=== PATIENT | female | born 1990 | race Caucasian/White ===

== ENCOUNTER → 2019-04-08 12:50 | Outpatient (CLI) | payer SELFPAY ==
--- NOTE | 2019-04-08 09:20 | ASPS_PTH ---
PATIENT: ANITA MCKEON LOC: [facility] #:[id number] AGE/SX: 34/F ROOM: RE04/08/[address]: Dr. José Manuel Roberts MD : 1990 BED: DIS: SPEC #: [id number] RECD: 04/08/19 12:50 STATUS: JOAN ROBERTO #: [id number] BRE: 04/08/19 09:[address]: José Manuel Roberts DEPT: CYTOLOGY RECD BY: Varun Keita Tissues: Thyroid gland, NOS Procedures: Special Stain Group II Cytology Other HEADER OPERATION: FNA isthmus PRE-OP DIAGNOSIS: Isthmus nodule TISSUE SUBMITTED: Isthmus x4 slides DIAGNOSIS CYTOLOGY Isthmic nodule, FNA (smears): Consistent with benign follicular nodule with cystic changes. Adequate for evaluation. SJ:lainey 04/09/19 COMMENT Correlation with clinical, radiologic findings and appropriate follow up are necessary. CYTOLOGY STUDY Slides are reviewed. CYTOLOGY GROSS Received are four smears labeled with the patient's name and designated per the requisition as isthmus. Submitted for staining. / lainey 04/08/19 TC:5 CPT: 67184
[2019-04-08 09:30] VITALS: BMI 30.4
== END ==
PROVIDERS: Referring Provider Surgery; Visit Provider Surgery
DX: E04.1 Nontoxic single thyroid nodule (principal)
CPT/HCPCS: 88161; 88313

== ENCOUNTER → 2025-02-07 | Outpatient (CLI) | payer SELFPAY, OTHER ==
--- NOTE | 2025-02-07 07:23 | US_ITS ---
PROCEDURE: CHEST 02/07/2025 REASON FOR EXAM: LIPOMA, CONCERN FOR SPINE INVOLVEMENT TECHNIQUE: Procedure Code: USCHEST Modality: US Procedure: CHEST The palpable abnormality overlying the right upper thorax posteriorly was examined with ultrasound. . COMPARISON: None FINDINGS: The palpable abnormality corresponds to a 6 cm by 4.9 cm by 1.2 cm well- circumscribed isoechoic mass most likely representing a lipoma. US/Chest IMPRESSION: The palpable abnormality most likely corresponds to a 6 cm x 4.9 cm 1.2 cm lipo ma. Reading Location: [place] [id number]
--- OUTSIDE RECORDS SUMMARY | 2025-02-07 07:26 | XMS RPT_ITS | CCD ---
Author Organization [facility] Care Team Providers Care Fur Blowing Machine Attendant Name Role Phone JESSY ELLIOTT Attending Unavailable JESSY ELLIOTT Primary Care Unavailable JESSY ELLIOTT Admitting Unavailable ELSI DELCID Attending Unavailable JESSY ELLIOTT Primary Care Unavailable EMETERIO PEREZ Admitting Unavailable EMETERIO PEREZ Attending Unavailable EMETERIO PEREZ Primary Care Unavailable Gavin BUNDY, Sheila Felix Unavailable [facility] Unavailable Omar COW PUNCHER, Elvira Unavailable Emeterio Perez MD Unavailable Artur COW PUNCHER, Toya Unavailable Unavailable Zaugg COW PUNCHER, Elsi Unavailable Unavailable (Murphy), [facility] Unavailable José Manuel Villalobos Attending Unavailable Salinas Mcintosh Referring Unavailable Salinas Mcintosh Attending Unavailable Allergies Allergy Classification Reported Allergen(s) Allergy Type Date of Onset Reaction(s) Facility (1 source) CONTRAST MEDIA, IODINE RELATED Drug allergy (disorder) [facility] Repository (3 sources) Iodine Drug Allergy [facility], [facility].; [facility], [facility]. (1 source) Iodinated Contrast Media Drug allergy (disorder) 01-21-2025 [facility] Repository Medications Completed/Discontinued Medications Medication Drug Class(es) Dates Sig (Normalized) Sig (Original) amoxicillin 875 mg oral tablet (3 sources) Penicillin-class Antibacterial Start: 09-03-2022 End: 09-24-2022 take 1 tablet by mouth twice daily Amoxicillin 875 MG Oral Tablet ; 1 (one) Tablet bid for 21 days Quantity: 42 {Tablet} Refills: 0 Ordered: 03-Sep-2022 MD Emeterio Perez Start: 03-Sep-2022 End: 24-Sep-2022 Status: Inactive Problems Active Problems Problem Classification Problem Date Documented Da te Episodic/Chronic E Codes: Natural/environment (6 sources) Infected insect bite; Translations: [Bitten or stung by nonvenomous insect and other nonvenomous arthropods, initial encounter] 09-20-2024 Episodic Other and unspecified benign neoplasm (5 sources) Lipoma (clinical); Translations: [Benign lipomatous neoplasm, unspecified] 09-21-2024 Episodic Other and unspecified benign neoplasm (2 sources) Benign lipomatous neoplasm of skin and subcutaneous tissue of trunk; Translations: [Benign lipomatous neoplasm of skin and subcutaneous tissue of trunk] Onset: 01-21-2025 Episodic Other skin disorders (9 sources) Mass of neck; Translations: [Localized swelling, mass and lump, neck] 03-08-2019 Episodic Thyroid disorders (3 sources) Mass of thyroid gland; Translations: [Other specified disorders of thyroid] 03-08-2019 Episodic Unclassified (3 sources) deliveries 12-30-2018 Comment on above: 1. Unclassified (3 sources) Number of Children 12-30-2018 Comment on above: 1. Unclassified (3 sources) Number of Pregnancies 12-30-2018 Comment on above: 2. Unclassified (3 sources) Vaginal deliveries 12-30-2018 Comment on above: 1. stillborn Past or Other Problems Problem Classification Problem Date Documented Da te Episodic/Chronic Unclassified (3 sources) Insect Bite/Sting - This occurred 4 day(s) ago at home. The patient sustained the insect bite/sting to the right leg (back of thigh). Presenting symptoms included redness at the site of the bite/sting and pain at the site of the bite/sting. Note for Insect bite/sting: Was walking through a field with tall grass and that evening started with pain and redness behind right knee. Has been increasing in size. reviewed by [facility] 09-03-2022 Unclassified (3 sources) Neck lump - Lump in front of neck for 6 months and getting larger. Is 5 weeks . reviewed by [facility] 12-30-2018 Unclassified (2 sources) lump - The onset of the lump has been gradual. The lump has been occurring for years. The lump is described as being located in the back. The lump is described as painless (Denies any redness, swelling, or discharge). Note for Lump: Patient states it has rapidly grown in the last 2 months, prior to that is was gradually growing.Patient states she had a fatty tumor removed by Marko Mckeon years ago. 09-21-2024 Results Test Name Value Interpretation Reference Range Facility Plastic Surgery Visit Report on 01-21-2025 Plastic Surgery Visit Report [facility] Plastic Reconstructive Surgery [address], [address] [place], [place] [address] OFFICE VISIT Date of Service: 01/21/25 MR#: [id number] Acct: [id number] Name: SHAMA MCKEON Rep #: [id number] : 1990 Provider: Dr. José Manuel Villalobos MD Age/Sex: 34/F Location: [facility] Status: Signed Reviewed note and agree Intake Vital Signs 3 01/21/25 15:48 Height 5 ft 1 in Weight: 159 lb BMI 30.0 BP 117/78 Blood Pressure Location Rt brachial Position Sitting Respiration 18 Pulse 90 Pulse Source Monitor Temp 98.9 F Temp Source Oral Pulse Oximetry (%) 98 Oxygen Delivery Method room air Intake Visit Reasons: LIPOMA L UPPER BACK Chief Complaint: Lipoma upper back Is patient in pain?: No Allergies Iodinated Contrast Media Allergy (Intermediate, Verified 01/21/25 15:47) tongue swelling Medications 3 ???Medication ???Instructions ???Recorded ???Confirmed ???Type vits,calcium no.78-iron 1 tab PO DAILY 08/31/15 01/21/25 H istory fumarate-folic acid 29 mg-1 mg tablet ibuprofen 400 mg tablet 800 mg (2 x 400 mg) PO Q6H PRN PRN 09/01/15 01/21/25 Rx Pain #40 tabs ascorbic acid (vitamin C) 1 g PO Q6H 03/18/19 01/21/25 Histo ry bromelains 100 mg chewable tablet 200 mg PO BID 03/18/19 01/21/25 H istory (Pineapple Extract) cholecalciferol (vitamin D3) 50 2,000 unit PO DAILY 03/18/1901/21 History mcg/drop (2,000 unit/drop) oral drops (Jey-T-Vzirpwy Forte) cyanocobalamin (B12)-cobamamide tab sublingual 03/18/19 01/21/25 H istory 5,000 mcg-100 mcg sublingual tablet iron 75 mg-vit C 60 mg-folate 1 1 tab PO DAILY 03/18/19 01/21/25 H istory mg-B12 10 lhu-wisx-yaqytfm capsule licorice root (G.glabra) 450 mg mg PO 03/18/19 01/21/25 History capsule psyllium 1 packet PO TID 03/18/19 01/21/25 History PFSH Medical History (Updated 01/21/25 @ 15:58 by CESILIA Elder) Lipoma of back Thyroid nodule Thyroid mass Surgical History Status post biopsy of thyroid gland ( 03/2019) History of umbilical hernia repair delivery, delivered, current hospitalization Family History Father No problems noted. Social History Smoking Status: Never smoker HPI LIPOMA L UPPER BACK Details: Patient is a 34-year-old female presenting today for initial consultation for cyst on her back. Past medical history significant for MTHFR gene. She noticed this cyst 2 years ago and has been growing steadily. The area does not cause any pain, drainage. She notices it when she is laying down on the back and would like the cyst removed. She has had follow-up lipoma on her abdomen removed before she was undergoing a hernia repair and healed well without issues. She has not had imaging of the cyst. She denies fever, chills, unintentional weight loss, lymph node swelling. She is not on blood thinners or antiplatelets, not a diabetic, no bleeding disorders, non-smoker. ROS Details General: Denies fever, chills HEENT: Denies headaches, vision changes, sore throat Cardio: Denies chest pain, leg edema Pulmonary: Denies shortness of pain, cough, wheezing GI: Denies nausea, vomiting, diarrhea General General: Yes good health; No fatigue, fever(s) or weight loss HENMT HENMT: No rhinitis, sore throat/mouth sore, nasal congestion, contacts or glaucoma Endo Endocrine: No thyroid disease, polydipsia, heat intolerance, cold intolerance, hepatitis or excessive urine Skin Skin: No Bleeding, bruising, changing moles or suspicious lesion Musc Musculoskeletal: No joint pain, joint stiffness, muscle weakness, back pain, osteoarthritis or Muscle aches/ myalgia Neuro Neurological: No headache(s), No lightheadedness and No numbness Cardio Cardiovascular: No chest pain, pacemaker, fatigue or shortness of breat with exertion Psych Psychiatric: No depression, claustrophobia or anxiety Resp Respiratory: No spitting up, shortness of breath, sleep apnea, asthma, emphysema, TB, Cough or Smoker Gastro Gastrointestinal: No diarrhea, constipation, blood in stool, nausea, vomiting or abdominal bloating Bret Hematologic: No anemia, No bleeding and No abnormal bleeding Genitourinary: No urinary frequency, blood in urine or incontinence Exam Details BP 117/78, heart rate 90, temp 98.9, respirations 18, O2 sat 98% Alert and oriented in no acute distress. Sitting in room comfortably Left upper back well-circumscribed, mobile 7 cm x 6 cm cyst that is slightly crosses over the midline. No erythema, induration, drainage. Nontender No auricular, submandibular, clavicular, axillary lymphadenopathy Coding Level of Care (more content not included)... Normal [facility] Progress Noteon 08-12-2019 Fur Mixer Operator Authentication Interface Message Text Shama Mckeon is a 28 y.o. 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 She has no family history of clefting or craniofacial anomalies. Father has no family history of clefting or craniofacial anomalies. She has no exposure to medications/drugs during conception or . There are no other environmental that may be implicated. Her main concerns are regarding 1. Feeding, 2. Timing of correction and 3. Overall health and development implications in the presence of a cleft. Her previous records, including the 27-wk ultrasound were reviewed. It appears that their child will have a bilateral complete cleft lip and palate. The rest of the visit was spent in counseling the family regarding the issues mentioned above. We described the ultrasound findings of cleft lip and palate. We explained that cleft lip/palate can occur as an isolated finding (up to ~95%), as part of a chromosome disorder, or as part of another genetic syndrome with additional defects and/or intellectual disability. We explained that cleft lip/palate can be surgically repaired, but there may be residual difficulty with feeding and speech. Some children may need additional surgeries as they get older. Other associated problems can include issues with dentition, hearing loss, and other developmental problems. We explained that most cases of isolatedcleft lip/palate are caused by a combination of genetic and environmental (multifactorial inheritance) with a 3-5% recurrence risk. The first step in the treatment of her child is to align the premaxilla with the lateral arches. This is a 2-step process: First we have to obtain an impression of the palate and the arches. Based on this impression a custom dentofacial appliance will be obtained. I will refer this child to our video systems engineer for this process. After alignment of the arches the child will be ready for correction of the lip and nasal deformity. The lip correction is typically performed at around 4-5 months of age. Lastly, the palate is closed around 7-8 months of age. This will be before speech development and will hopefully provide the best chance for normal speech. I reviewed this with the parents and also reviewed other patient photographs and they understand the plan of care. During the first 1-2 months we will continue to keep in close contact to assure that the baby is feeding well and gaining weight. We also had her see our craniofacial coordinator so they can follow up with our Craniofacial Clinic for a multidisciplinary evaluation after . They met with our transition social worker as well. Dr. Ty spoke to the expectant mother, Shama Mckeon, and her . Her due date is September 01, 2019. She will see Dr. Ty again in clinic 1-2 weeks after . She met with our feeding specialist, Junior, today to go over obtaining proper nutrition for a with cleft lip/palate. Carolin Lim MD Plastic & Reconstructive Surgery Fellow PGY-7 Pager #[phone] I have personally shared in this visit of Shama Mckeon, providing bedside participation in the evaluation and management. I saw and evaluated the patient. I discussed the patient's history, exam, and medical decision making with the Plastic surgery resident. I performed components of the history, physical exam and the medical decision making. I agree with the above documentation and assessment. Shama is a 28 y.o. who is a expecting a baby with bilateral cleft lip and palate. Family history and medical history was reviewed. I spent a total of 50 minutes with this patient, of which, >40 minutes was spent counseling and/or coordinating care. We discussed a summary of the treatment plan with the patient and family including details on coordination of care. Our discussion included: timing and indication of cleft related surgery; intraoperative details; possible risks, benefits and different surgical options; expected postoperative course and outcomes. Ugo Ty MD, FACS Chief, Division of Plastic Surgery [facility] 08/13/2019 [facility] Progress Noteon 07-21-2019 Fur Mixer Operator Authentication Interface Message Text Dating for consult [facility] CNOVon 05-20-2019 CNOV Office Visit ([facility]) LINDASHAMA ([id number]) 1990 F Date Time Provider Department 05/20/19 2:30 PM DELANEY DE LEÓN JR [facility] During your visit today, we recorded the following information about you: Blood pressure Weight Height 97/61 73 kg 1.549 m Christine Cintron RN 05/20/2019 3:24 PM Signed Pt reports feeling regular movement. She declines dopplers at this time. Delaney De León Jr, MD 05/20/2019 5:20 PM Signed Date: May 20, 2019 PROVIDER: Camila Mckeon Re: Shama Linda : 1990 Dear Camila Thank you for your referral of your patient Shama Mckeon. Shama Mckeon is at 25w1d Estimated Date of Delivery: 09/01/19. Shama, as you know, is referred for recommendations regarding an abnormal APTT. SIGNIFICANT PAST MEDICAL HX: No past medical history on file. SIGNIFICANT PAST SURGICAL HX: No past surgical history on file. SIGNIFICANT FAMILIAL HX: No family history on file. OB HX: Obstetric History T0 L0 SAB0 TAB0 Ectopic0 Multiple0 Live Births0 Name of Baby 1: Not recorded Date: Not recorded GA: Not recorded Delivery: Not recorded Apgar1: Not recorded Apgar5: Not recorded Living: Not recorded ALLERGIES: Iodine SOCIAL HX: Social History Tobacco Use - Smoking status: Never Smoker - Smokeless tobacco: Never Used Substance Use Topics - Alcohol use: Not on file - Drug use: Not on file MEDICATIONS: Current Outpatient Medications Medication Sig Dispense Refill - PNV 745-HYDV-[id number] 1-DSS-DHA ORAL Take by mouth once daily. - pptchol/vit C/milk thistle (PHOSPHATIDYLCHO-VITC- MILK THIS ORAL) Take by mouth once daily. No current facility-administered medications for this visit. RECOMMENDATIONS: As you know I had a very nice discussion with Shama her you and a friend of the family regarding the abnormal APTT test. Given her lack of past medical history that would suggest a bleeding disorder I do not feel that any further workup needs to be done on this test especially since repeat came back normal. I don't think she has a clotting factor deficiency that needs to be evaluated such as hemophilia and or von Willebrand's disease. She's had a surgery and a vaginal delivery and is not had excessive bleeding for either of those. She does not also have a history of clotting problems. She does not have a history of DVTs. She does have MTHFR but as we discussed almost half the population does as well. 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 We did perform an ultrasound and unfortunately we did find a bilateral cleft lip and palate. Shama will be referred to a craniofacial surgeon for repair of this malformation. Given the position of the placenta and position a baby at think it would be very excellent candidate for vaginal after . Obviously the baby will have some special needs after delivery because of the cleft lip and palate. Thank you very much for the referral this very pleasant patient if I can be of any additional service or I can answer any additional questions please don't hesitate to contact me. I spent 25 minutes face to face with the patient and evaluations of her records. >50% of time was spent in counseling and/or coordination of care. If I can be of any further assistance or if you have any questions please feel free to call me. Sincerely, Delaney De León Junior, M.D., FACOG [facility] Delaney De León Jr, MD 05/20/2019 5:20 PM Signed ? Please call the office before going to the hospital. ? If you are , go to the ER at the [facility]. Do not go to the outlying ER?s ([place], [place] or [place]). ? If you need to go to an ER and cannot or will not go downtown, please use one of [facility]?s ER?s (not [facility], [facility] or [facility]). Allergies As of Date: 05/20/2019 Noted Allergy Reaction IODINE 05/20/2019 2 - Rash 7 - Swelling Date Reviewed: 05/20/2019 Reviewed by: Christine Cintron - Fully Assessed Reason for Visit: Consult [173] Reason For Visit History Recorded Primary Visit Diagnosis:Bilateral complete cleft lip of fetus affecting antepartum care of mother, single or unspecified fetus [O35.8XX0] Other Visit Diagnoses:History of abnormality in previous , currently [O09.299] History of demise, not currently [Z87.59] MTHFR mutation (HCC) [E72.12] High risk multigravida, unspecified trimester [O09.899] History of anomaly in prior , currently [O09.299] Prescriptions as of 05/20/2019 Sig: PNV 400-MMDT-INXDOJ 1-DSS-DHA* Take by mouth once daily. [id number]-[id number]-O ILK THI* Take by mouth once daily. Problem List As Of Date 05/20/2019 Noted Resolved History of delivery [Z98.891] 05/20/2019 Thyroid nodule [E04.1] 05/20/2019 High risk multigravida, unspecified trimester [*05/20/2019 History of anomaly in prior , cu*05/20/2019 Other instructions from your clinician: ? Please call the office before going to the hospital. ? If you are , go to the ER at the [facility]. Do not go to the outlying ER?s ([facility], [place] or [place]). ? If you need to go to an ER and cannot or will not go downtown, please use one of [facility]?s ER?s (not [facility], [facility] or [facility]). Visit Notes: >> Christine Cintron Ayleen May 20, 2019 3:23 PM Status: Signed Pt reports feeling regular movement. She declines dopplers at this time. Disposition: Return As needed. Follow-up and Disposition History Recorded Encounter Status:Closed by DELANEY DE LEÓN JR, MD on 05/20/19 [facility] Office Visit ([facility]) SHAMA MCKEON ([id number]) 1990 F Date Time Provider Department 05/20/19 2:15 PM US RM1 EDGE BANDING MACHINE OFFBEARER AG [facility] During your visit today, we recorded the following information about you: Manolo Guerrier MD 05/20/2019 4:53 PM Signed ? Please call the office before going to the hospital. ? If you are , go to the ER at the [facility]. Do not go to the outlying ER?s ([place] or [place]). ? If you need to go to an ER and cannot or will not go downtown, please use one of [facility]?s ER?s (not [facility], [place] or [facility]). Referring Provider: DELANEY DE LEÓN JR [[id number]] Allergies As of Date: 05/20/2019 Noted Allergy Reaction IODINE 05/20/2019 2 - Rash 7 - Swelling Date Reviewed: 05/20/2019 Reviewed by: Christine Michel) Saida - Fully Assessed Visit Diagnosis:Bilateral complete cleft lip of fetus affecting antepartum care of mother, single or unspecified fetus [O35.8XX0] Prescriptions as of 05/20/2019 Sig: PNV 657-GVCB-DRDUCJ 1-DSS-DHA* Take by mouth once daily. [id number]-SWKH-N ILK THI* Take by mouth once daily. Problem List As Of Date: 05/20/2019 (None) Other instructions from your clinician: ? Please call the office before going to the hospital. ? If you are , go to the ER at the [facility]. Do not go to the outlying ER?s ([place] or [place]). ? If you need to go to an ER and cannot or will not go downtown, please use one of [facility]?s ER[facility]s (not [facility] or [facility]). Encounter Status:Closed by MANOLO GUERRIER MD on 05/20/19 Normal [facility] PROGRESSon 05-20-2019 PROGRESS HNO ID: [id number] Author: Delaney De León Jr. Service: ? Author Type: Physician Type: Progress Notes Filed: 05/20/2019 5:20 PM Note Text: Date: May 20, 2019 PROVIDER: Camila Mckeon Re: Shamatoo Mckeon : 1990 Dear Camila Thank you for your referral of your patient Shama Mckeon. Shama Mckeon is at 25w1d Estimated Date of Delivery: 09/01/19. Shama, as you know, is referred for recommendations regarding an abnormal APTT. SIGNIFICANT PAST MEDICAL HX: No past medical history on file. SIGNIFICANT PAST SURGICAL HX: No past surgical history on file. SIGNIFICANT FAMILIAL HX: No family history on file. OB HX: Obstetric History T0 L0 SAB0 TAB0 Ectopic0 Multiple0 Live Births0 Name of Baby 1: Not recorded Date: Not recorded GA: Not recorded Delivery: Not recorded Apgar1: Not recorded Apgar5: Not recorded Living: Not recorded ALLERGIES: Iodine SOCIAL HX: Social History Tobacco Use - Smoking status: Never Smoker - Smokeless tobacco: Never Used Substance Use Topics - Alcohol use: Not on file - Drug use: Not on file MEDICATIONS: Current Outpatient Medications Medication Sig Dispense Refill - PNV 856-FSWR-FZIFMC 1-DSS-DHA ORAL Take by mouth once daily. - pptchol/vit C/milk thistle (PHOSPHATIDYLCHO-VITC- MILK THIS ORAL) Take by mouth once daily. No current facility-administered medications for this visit. RECOMMENDATIONS: As you know I had a very nice discussion with Shama her you and a friend of the family regarding the abnormal APTT test. Given her lack of past medical history that would suggest a bleeding disorder I do not feel that any further workup needs to be done on this test especially since repeat came back normal. I don't think she has a clotting factor deficiency that needs to be evaluated such as hemophilia and or von Willebrand's disease. She's had a surgery and a vaginal delivery and is not had excessive bleeding for either of those. She does not also have a history of clotting problems. She does not have a history of DVTs. She does have MTHFR but as we discussed almost half the population does as well. 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 We did perform an ultrasound and unfortunately we did find a bilateral cleft lip and palate. Shama will be referred to a craniofacial surgeon for repair of this malformation. Given the position of the placenta and position a baby at think it would be very excellent candidate for vaginal after . Obviously the baby will have some special needs after delivery because of the cleft lip and palate. Thank you very much for the referral this very pleasant patient if I can be of any additional service or I can answer any additional questions please don't hesitate to contact me. I spent 25 minutes face to face with the patient and evaluations of her records. >50% of time was spent in counseling and/or coordination of care. If I can be of any further assistance or if you have any questions please feel free to call me. Sincerely, Delaney De León Junior, M.D., FACOG [facility] THYROIDon 03-01-2019 [place] [id number] Patient: SHAMA MCKEON Phone#: : 1990 Age: 28 Gender: F Pt. Type: Out Account: [id number] Location: Ordering: EMETERIO PEREZ Exam Date: 03/01/2019/8:43 Family Phys: Charge Code: [id number] Physician: [place] Order #: [id number] DLP Dose#: PROCEDURE: THYROID ULTRASOUND COMPARISON: None. INDICATIONS: Thyroid nodule TECHNIQUE: High-resolution ultrasound was performed of the thyroid gland. FINDINGS: RIGHT LOBE: Normal. No visible mass, cyst, calcification, enlargement, or abnormal echotexture. Right lobe measures 4.9 x 1.6 x 2.2 cm. LEFT LOBE: Normal. No visible mass, cyst, calcification, enlargement, or abnormal echotexture. Left lobe measures 4.3 x 1.5 x 1.8 cm. ISTHMUS: There is a solid and cystic mass in the isthmus measuring 1.9 x 0.8 x 1.9 cm. Isthmus measures 1.2 cm. OTHER: None. CONCLUSION: 1. Solid and cystic nodule in the isthmus consistent with a moderately suspicious, TR4 nodule. Recommend fine needle aspiration. Dictated by: Mela Garber MD on 03/01/2019 at 13:38 Approved by: Mela Garber MD on 03/01/2019 at 14:[address] [facility] APCVon 08-04-2018 APC Factor V Resistance 2.8 ratio Normal [facility] ([place]) Comment on above: Result Comment: This APCV result demonstrates no Resistance to Activated Protein C. APC Factor V Resistance Reference Range: <= 2.3 Positive > 2.3 Negative Performed By: #### P ABO, ANEU, RPR, HIV, HBSAG, ADIFF, PABS, VARIS, RUBIS, CBC #### [address] [address] [id number] 08-03-2018 Beta2 Glycoprotein IgG <9 Normal <20 [facility] ([place]) Comment on above: Result Comment: < 20 SGU Negative 20-80 SGU Low Positive > 80 SGU High Positive These results were obtained with the [employer]ia QUANTA Lite B2 GPI IgG [place]. B2 GPI IgG values obtained with different manufacturers' assay methods may not be used interchangeably. The magnitude of the reported IgG levels cannot be correlated to an endpoint titer. Performed By: [facility] [address] [place] [address] Corrections Caseworker: Bre Yañez M.D. [facility]#: [id number] Phone#: Performed By: #### P ABO, ANEU, RPR, HIV, HBSAG, ADIFF, PABS, VARIS, RUBIS, CBC #### [address] [address] Protein mass conc g/dL Normal <20 [facility] ([place]) Comment on above: Result Comment: < 20 SMU Negative 20-80 SMU Low Positive > 80 SMU High Positive These results were obtained with the [employer] QUANTA Lite B2 GPI IgM [place]. B2 GPI IgM values obtained with different manufacturers' assay methods may not be used interchangeably. The magnitude of the reported IgM levels cannot be correlated to an endpoint titer. Performed By: [facility] [address] [place] [address] Corrections Caseworker: Aaliyah Osborne#: [id number] Phone#: Performed By: #### P ABO, ANEU, RPR, HIV, HBSAG, ADIFF, PABS, VARIS, RUBIS, CBC #### [place] [address] BETAAon 08-02-2018 Beta-2 Glycoprotein Abs, IgA 2 Normal [facility] ([place]) Comment on above: Result Comment: Refe rence range: 0 to 20 Unit: MOLLY (NOTE) Performed by [email or web address], [address] [place], [place] [id number] [email or web address], Judd Balderrama MD, Lab. Director Performed By: #### P ABO, ANEU, RPR, HIV, HBSAG, ADIFF, PABS, VARIS, RUBIS, CBC #### [place] [address] PHOGMAon 08-02-2018 Phosphatidylserine IgA 0 Normal [facility] ([place]) Comment on above: Result Comment: Refe rence range: 0 to 19 Unit: U/mL (NOTE) Performed by [email or web address], [address] [place] [id number] [email or web address], Judd Balderrama MD, Lab. Director Performed By: #### P ABO, ANEU, RPR, HIV, HBSAG, ADIFF, PABS, VARIS, RUBIS, CBC #### [place] [address] Phosphatidylserine IgG 8 Normal [facility] ([place]) Comment on above: Result Comment: Refe rence range: 0 to 10 Unit: U/mL (NOTE) INTERPRETIVE INFORMATION: Phosphatidylserine Ab, IgG The presence of IgG and/or IgM antibodies to phosphatidylserine (aPS) may be associated with a positive test for anti-cardiolipin autoantibodies (aCL) and risk for obstetric antiphospholipid syndrome (APS). Strong clinical correlation is recommended in the absence of lupus anticoagulant, IgG and/or IgM cardiolipin and/or beta2 glycoprotein antibodies. Isolated presence of IgM or IgG antibodies to aPS may have questionable clinical significance for APS and/or SLE. If results are positive, repeat testing with two or more specimens drawn at least 12 weeks apart to demonstrate persistence of antibodies. Results should not be used alone for diagnosis and must be interpreted in light of APS-specific clinical manifestations and/or other criteria phospholipid antibody tests. Performed By: #### P ABO, ANEU, RPR, HIV, HBSAG, ADIFF, PABS, VARIS, RUBIS, CBC #### [address] [address] Phosphatidylserine IgM 14 Normal [facility] ([place]) Comment on above: Result Comment: Refe rence range: 0 to 24 Unit: U/mL (NOTE) INTERPRETIVE INFORMATION: Phosphatidylserine Ab, IgM The presence of IgG and/or IgM antibodies to phosphatidylserine (aPS) may be associated with a positive test for anti-cardiolipin autoantibodies (aCL) and risk for obstetric antiphospholipid syndrome (APS). Strong clinical correlation is recommended in the absence of lupus anticoagulant, IgG and/or IgM cardiolipin and/or beta2 glycoprotein antibodies. Isolated presence of IgM or IgG antibodies to aPS may have questionable clinical significance for APS and/or SLE. If results are positive, repeat testing with two or more specimens drawn at least 12 weeks apart to demonstrate persistence of antibodies. Results should not be used alone for diagnosis and must be interpreted in light of APS-specific clinical manifestations and/or other criteria phospholipid antibody tests. 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 25-32% of the population is heterozygous for the c.665C>T variant and 25-40% of the general population is heterozygous for the c.1286A>C variant making compound heterozygosity a common finding. This result is unlikely to have clinical significance. Our interpretation is based on the current understanding of MTHFR genetics. MTHFR has been widely studied, particularly the common polymorphisms evaluated by this test. Overall, the clinical data are inconsistent and inconclusive. The results should be interpreted in the context of the overall clinical presentation. METHOD: Isolated genomic DNA is evaluated for the c.665C>T (p.Qgx580Chw; [id number]) and c.1286A>C (p.[id number]; [id number]) variants in the MTHFR gene [RefSeq [id number], GRCh38/hg38] by multiplex polymerase chain reaction (PCR) followed by melting curve analysis. This test was developed and its performance characteristics determined by [facility] [place] ([facility]). It has not been cleared or approved by the FDA. [facility] is regulated under CLIA as qualified to perform high-complexity testing. This test is used for clinical purpose. It should not be regarded as investigational or for research. LIMITATIONS: This assay is designed to detect the c.665C>T and c.1286A>C variants in the MTHFR gene. Uncommon variants or single nucleotide polymorphisms may affect binding of probes and may rarely result in false negative, false positive or indeterminate results. This test does not detect other sequence variants in MTHFR or other genes. REFERENCES: 1) Lack of Evidence for MTHFR Polymorphism Testing. ACMG Practice Guideline. Caitlin Med. 2013;15(2):153-6. 2) Inherited Thrombophilias in . ACOG Practice Bulletin. No. 197. [place] [employer]nec[employer]. Obstet Gynecol 2018;132:e18???34. 3) ACCF/AHA Guideline for Assessment of Cardiovascular Risk In Asymptomatic Adults: A Report of the [place] [employer] Foundation/[place] Heart Association Task Force on Practice Guidelines. J Am Rose Cardiol. 2010;56(25):50???103. 4) Romero NOVAK, Neva Garces. MTHFR: Addressing Genetic Counseling Dilemmas Using Evidence-Based Literature. J Caitlin Ore Crushing Dust Collector. 2016;25:901-11. 5) Isabel SE, Kennedy CJ, Rashaun HV. ACMG Practice Guideline: lack of evidence for MTHFR polymorphism testing. Caitlin Med 2013;15:153-156. 6) Pharmacogenomic summary Performed By: [place] [address] Corrections Caseworker: Bre Yañez M.D. CLIA#: [id number] Phone#: Performed By: #### P ABO, ANEU, RPR, HIV, HBSAG, ADIFF, PABS, VARIS, RUBIS, CBC #### [address] 07-20-2018 IgG Cardiolipin Ab 13 GPL High 0-9 [facility] ([place]) Comment on above: Result Comment: <10 GPL Negative 10-40 GPL Equivocal >40 GPL Positive The following results were obtained with the [employer] QUANTA Lite PA IgG III [place]. Cardiolipin IgG values obtained with the different manufacturers' assay methods may not be used interchangeably. The magnitude of the reported IgG levels cannot be correlated to an endpoint titer. Performed By: [place] [address] Corrections Caseworker: Bre Yañez M.D. CLIA#: [id number] Phone#: Performed By: #### P ABO, ANEU, RPR, HIV, HBSAG, ADIFF, PABS, VARIS, RUBIS, CBC #### [address] 07-20-2018 IgM Cardiolipin Ab <9 Normal 0-11 [facility] ([place]) Comment on above: Result Comment: <12 MPL Negative 12-40 MPL Equivocal >40 MPL Positive The following results were obtained with the [employer]ova QUANTA Lite PA IgM III [place]. Cardiolipin IgM values obtained with different manufacturers' assay methods may not be used interchangeably. The magnitude of the reported IgM levels cannot be correlated to an endpoint titer. Performed By: [place] [address] Corrections Caseworker: Bre Yañez M.D. LEN#: [id number] Phone#: Performed By: #### P ABO, ANEU, RPR, HIV, HBSAG, ADIFF, PABS, VARIS, RUBIS, CBC #### [address] [address] .Auto Diffon 06-11-2018 Ammonia mass conc (P) 0.40 10 3/mcL Normal 0.15-1.00 [facility] ([place]) Comment on above: Performed By: #### P ABO, ANEU, RPR, HIV, HBSAG, ADIFF, PABS, VARIS, RUBIS, CBC #### [address] [address] Basophils #/vol (Bld) 0.00 10 3/mcL Normal 0.00-0.19 [facility] ([place]) Comment on above: Performed By: #### P ABO, ANEU, RPR, HIV, HBSAG, ADIFF, PABS, VARIS, RUBIS, CBC #### [address] [address] Basophils/100 WBC (Bld) 0.3 % Normal 0.0-2.5 [facility] ([place]) Comment on above: Performed By: #### P ABO, ANEU, RPR, HIV, HBSAG, ADIFF, PABS, VARIS, RUBIS, CBC #### [address] [address] Eosinophils #/vol (Bld) 0.20 10 3/mcL Normal 0.00-0.40 [facility] ([place]) Comment on above: Performed By: #### P ABO, ANEU, RPR, HIV, HBSAG, ADIFF, PABS, VARIS, RUBIS, CBC #### [address] [address] Eosinophils/100 WBC (Bld) 2.0 % Normal 0.0-7.0 [facility] ([place]) Comment on above: Performed By: #### P ABO, ANEU, RPR, HIV, HBSAG, ADIFF, PABS, VARIS, RUBIS, CBC #### [address] [address] Lymphocytes #/vol (Bld) 2.00 10 3/mcL Normal 0.77-3.85 [facility] ([place]) Comment on above: Performed By: #### P ABO, ANEU, RPR, HIV, HBSAG, ADIFF, PABS, VARIS, RUBIS, CBC #### [address] [address] Lymphocytes/100 WBC (Bld) 24.1 % Normal 10.0-50.0 [facility] ([place]) Comment on above: Performed By: #### P ABO, ANEU, RPR, HIV, HBSAG, ADIFF, PABS, VARIS, RUBIS, CBC #### [address] [address] Monocytes/100 WBC (Bld) 4.9 % Normal 1.7-13.0 [facility] ([place]) Comment on above: Performed By: #### P ABO, ANEU, RPR, HIV, HBSAG, ADIFF, PABS, VARIS, RUBIS, CBC #### [address] [address] Neutrophils/100 WBC (Bld) 68.7 % Normal 37.0-80.0 [facility] ([place]) Comment on above: Performed By: #### P ABO, ANEU, RPR, HIV, HBSAG, ADIFF, PABS, VARIS, RUBIS, CBC #### [address] [address] .NEUABSon 06-11-2018 Neutrophils #/vol (Bld) 5.80 10 3/mcL Normal 2.85-6.16 [facility] ([place]) Comment on above: Performed By: #### P ABO, ANEU, RPR, HIV, HBSAG, ADIFF, PABS, VARIS, RUBIS, CBC #### [address] [address] CBCon 06-11-2018 Erythrocyte distribution width Ratio (RBC) 13.3 % Normal 11.5-14.5 [facility] ([place]) Comment on above: Performed By: #### P ABO, ANEU, RPR, HIV, HBSAG, ADIFF, PABS, VARIS, RUBIS, CBC #### [place] [address] Hematocrit Volume Fraction (Bld) 34.2 % Low 37.0-47.0 [facility] ([place]) Comment on above: Performed By: #### P ABO, ANEU, RPR, HIV, HBSAG, ADIFF, PABS, VARIS, RUBIS, CBC #### [place] [address] Hemoglobin mass conc (Bld) 11.9 G/dL Low 12.0-16.0 [facility] ([place]) Comment on above: Performed By: #### P ABO, ANEU, RPR, HIV, HBSAG, ADIFF, PABS, VARIS, RUBIS, CBC #### [place] [address] MCH Entitic mass (RBC) 32.4 pg High 27.0-31.2 [facility] ([place]) Comment on above: Performed By: #### P ABO, ANEU, RPR, HIV, HBSAG, ADIFF, PABS, VARIS, RUBIS, CBC #### [place] [address] MCHC mass conc (RBC) 34.7 G/dL Normal 33.0-37.0 [facility] ([place]) Comment on above: Performed By: #### P ABO, ANEU, RPR, HIV, HBSAG, ADIFF, PABS, VARIS, RUBIS, CBC #### [place] [address] MCV Entitic volume (RBC) 93.3 fL Normal 80.0-94.0 [facility] ([place]) Comment on above: Performed By: #### P ABO, ANEU, RPR, HIV, HBSAG, ADIFF, PABS, VARIS, RUBIS, CBC #### [place] [address] Platelet mean volume Entitic volume (Bld) 7.2 fL Low 7.4-10.4 [facility] ([place]) Comment on above: Performed By: #### P ABO, ANEU, RPR, HIV, HBSAG, ADIFF, PABS, VARIS, RUBIS, CBC #### [address] [address] Platelets #/vol (Bld) 304 10 3/mcL Normal 130-400 [facility] ([place]) Comment on above: Performed By: #### P ABO, ANEU, RPR, HIV, HBSAG, ADIFF, PABS, VARIS, RUBIS, CBC #### [place] [address] RBC #/vol (Bld) 3.66 10 6/mcL Low 4.20-5.40 [facility] ([place]) Comment on above: Performed By: #### P ABO, ANEU, RPR, HIV, HBSAG, ADIFF, PABS, VARIS, RUBIS, CBC #### [place] [address] WBC #/vol (Bld) 8.40 10 3/mcL Normal 4.60-10.80 [facility] ([place]) Comment on above: Performed By: #### P ABO, ANEU, RPR, HIV, HBSAG, ADIFF, PABS, VARIS, RUBIS, CBC #### [place] [address] Gel ABOon 06-11-2018 ABO/Rh Interp Negative [facility] ([place]) Comment on above: Performed By: #### P ABO, ANEU, RPR, HIV, HBSAG, ADIFF, PABS, VARIS, RUBIS, CBC #### [place] [address] Gel ABSon 06-11-2018 Antibody Screen Gel Negative [facility] ([place]) Comment on above: Performed By: #### P ABO, ANEU, RPR, HIV, HBSAG, ADIFF, PABS, VARIS, RUBIS, CBC #### [place] [address] VARISon 05-20-[address] Positive [facility] ([place]) Comment on above: Result Comment: This immune status assay detects antibody to Varicella Zoster virus. Interpret results in conjunction with clinical history. Positive: Reactive for antibodies to Varicella IgG. If clinically indicated, order Varicella IGM to rule out recent infection. Equivocal: Equivocal for antibodies to Varicella IgG. Suggest repeat testing in 10-14 days. Negative: Non-reactive for antibodies to Varicella IgG. Sera will be held 4-6 weeks if further testing is required. Performed By: #### P ABO, ANEU, RPR, HIV, HBSAG, ADIFF, PABS, VARIS, RUBIS, CBC #### [address] [address] .Auto Diffon 05-19-2018 Ammonia mass conc (P) 0.80 10 3/mcL Normal 0.09-1.40 [facility] ([place]) Comment on above: Performed By: #### P ABO, ANEU, RPR, HIV, HBSAG, ADIFF, PABS, VARIS, RUBIS, CBC #### [place] [address] Basophils #/vol (Bld) 0.00 10 3/mcL Normal 0.00-0.27 [facility] ([place]) Comment on above: Performed By: #### P ABO, ANEU, RPR, HIV, HBSAG, ADIFF, PABS, VARIS, RUBIS, CBC #### [place] [address] Basophils/100 WBC (Bld) 0.4 % Normal 0.0-2.5 [facility] ([place]) Comment on above: Performed By: #### P ABO, ANEU, RPR, HIV, HBSAG, ADIFF, PABS, VARIS, RUBIS, CBC #### [place] [address] Eosinophils #/vol (Bld) 0.30 10 3/mcL Normal 0.00-0.65 [facility] ([place]) Comment on above: Performed By: #### P ABO, ANEU, RPR, HIV, HBSAG, ADIFF, PABS, VARIS, RUBIS, CBC #### [address] [address] Eosinophils/100 WBC (Bld) 2.5 % Normal 0.0-6.0 [facility] ([place]) Comment on above: Performed By: #### P ABO, ANEU, RPR, HIV, HBSAG, ADIFF, PABS, VARIS, RUBIS, CBC #### [address] [address] Lymphocytes #/vol (Bld) 2.80 10 3/mcL Normal 0.90-4.32 [facility] ([place]) Comment on above: Performed By: #### P ABO, ANEU, RPR, HIV, HBSAG, ADIFF, PABS, VARIS, RUBIS, CBC #### [address] [address] Lymphocytes/100 WBC (Bld) 23.1 % Normal 20.0-40.0 [facility] ([place]) Comment on above: Performed By: #### P ABO, ANEU, RPR, HIV, HBSAG, ADIFF, PABS, VARIS, RUBIS, CBC #### [address] [address] Monocytes/100 WBC (Bld) 6.4 % Normal 2.0-13.0 [facility] ([place]) Comment on above: Performed By: #### P ABO, ANEU, RPR, HIV, HBSAG, ADIFF, PABS, VARIS, RUBIS, CBC #### [address] [address] Neutrophils/100 WBC (Bld) 67.6 % Normal 50.0-75.0 [facility] ([place]) Comment on above: Performed By: #### P ABO, ANEU, RPR, HIV, HBSAG, ADIFF, PABS, VARIS, RUBIS, CBC #### [address] [address] .NEUABSon 05-19-2018 Neutrophils #/vol (Bld) 8.20 10 3/mcL High 2.25-8.10 [facility] ([place]) Comment on above: Performed By: #### P ABO, ANEU, RPR, HIV, HBSAG, ADIFF, PABS, VARIS, RUBIS, CBC #### [address] [address] CBCon 05-19-2018 Erythrocyte distribution width Ratio (RBC) 12.9 % Normal 11.5-15.5 [facility] ([place]) Comment on above: Performed By: #### P ABO, ANEU, RPR, HIV, HBSAG, ADIFF, PABS, VARIS, RUBIS, CBC #### [place] [address] Hematocrit Volume Fraction (Bld) 35.8 % Normal 34.0-46.0 [facility] ([place]) Comment on above: Performed By: #### P ABO, ANEU, RPR, HIV, HBSAG, ADIFF, PABS, VARIS, RUBIS, CBC #### [place] [address] Hemoglobin mass conc (Bld) 12.5 G/dL Normal 12.0-16.0 [facility] ([place]) Comment on above: Performed By: #### P ABO, ANEU, RPR, HIV, HBSAG, ADIFF, PABS, VARIS, RUBIS, CBC #### [place] [address] MCH Entitic mass (RBC) 32.0 pg Normal 27.0-33.0 [facility] ([place]) Comment on above: Performed By: #### P ABO, ANEU, RPR, HIV, HBSAG, ADIFF, PABS, VARIS, RUBIS, CBC #### [place] [address] MCHC mass conc (RBC) 35.0 G/dL Normal 32.0-36.0 [facility] ([place]) Comment on above: Performed By: #### P ABO, ANEU, RPR, HIV, HBSAG, ADIFF, PABS, VARIS, RUBIS, CBC #### [place] [address] MCV Entitic volume (RBC) 91.5 fL Normal 80.0-99.0 [facility] ([place]) Comment on above: Performed By: #### P ABO, ANEU, RPR, HIV, HBSAG, ADIFF, PABS, VARIS, RUBIS, CBC #### [place] [address] Platelet mean volume Entitic volume (Bld) 8.5 fL Normal 6.6-10.5 [facility] ([place]) Comment on above: Performed By: #### P ABO, ANEU, RPR, HIV, HBSAG, ADIFF, PABS, VARIS, RUBIS, CBC #### [place] [address] Platelets #/vol (Bld) 276 10 3/mcL Normal 150-450 A [facility] ([place]) Comment on above: Performed By: #### P ABO, ANEU, RPR, HIV, HBSAG, ADIFF, PABS, VARIS, RUBIS, CBC #### [place] [address] RBC #/vol (Bld) 3.91 10 6/mcL Low 4.10-5.30 [facility] ([place]) Comment on above: Performed By: #### P ABO, ANEU, RPR, HIV, HBSAG, ADIFF, PABS, VARIS, RUBIS, CBC #### [place] [address] WBC #/vol (Bld) 12.20 10 3/mcL High 4.50-10.80 [facility] ([place]) Comment on above: Performed By: #### P ABO, ANEU, RPR, HIV, HBSAG, ADIFF, PABS, VARIS, RUBIS, CBC #### [place] [address] HBSAGon 05-19-2018 Hep B Surf Ag Negative Normal Negative [facility] ([place]) Comment on above: Performed By: #### P ABO, ANEU, RPR, HIV, HBSAG, ADIFF, PABS, VARIS, RUBIS, CBC #### [place] [address] HIVon 05-19-2018 HIV 1/2 Ab Normal Negative [facility] ([place]) Comment on above: Result Comment: Nega tive Specimen is negative for anti-HIV-1 and anti-HIV-2. Performed By: #### P ABO, ANEU, RPR, HIV, HBSAG, ADIFF, PABS, VARIS, RUBIS, CBC #### [place] [address] PABOon 05-19-2018 PABO/Rh Interp Negative [facility] ([place]) Comment on above: Performed By: #### P ABO, ANEU, RPR, HIV, HBSAG, ADIFF, PABS, VARIS, RUBIS, CBC #### [address] [address] PABSon 05-19-2018 PABS Interp Negative Normal [facility] ([place]) Comment on above: Performed By: #### P ABO, ANEU, RPR, HIV, HBSAG, ADIFF, PABS, VARIS, RUBIS, CBC #### [address] [address] RPRon 05-19-2018 Reagin Ab RPR Ql (S) Non-Reactive Normal Non-Reactive [facility] ([place]) Comment on above: Result Comment: The RPR test is a non-treponemal assay useful as an aid in the diagnosis of primary and secondary syphilis. It converts to positive generally within 2 weeks after the appearance of a lesion. This test is also useful for monitoring response to antibiotic therapy. A positive RPR screening test will be followed by the FTA ABS test. False positive RPR tests may occur in 1) patients with underlying autoimmune disorders, 2) elderly patients, 3) , and 4) other conditions with abnormal serum globulins. Performed By: #### P ABO, ANEU, RPR, HIV, HBSAG, ADIFF, PABS, VARIS, RUBIS, CBC #### [address] [address] RUBISon 05-19-[address] Positive Normal Positive [facility] ([place]) Comment on above: Result Comment: This immune status assay detects IgM and/or IgG antibody to Rubella. Interpret results in conjunction with clinical history. POS: Antibody detected; exposure at undetermined recent or distant time. If clinically indicated, order Rubella IGM to rule out recent infection. NEG: No antibody detected. Performed By: #### P ABO, ANEU, RPR, HIV, HBSAG, ADIFF, PABS, VARIS, RUBIS, CBC #### [address] [address] Vital Signs Date Time Vital Sign Value Performing Clinician Facility 09-21-2024 08:09-0400 Body height 154.94 cm Toya Siddiqui LPN [facility], [facility].; [facility], [facility]. 09-21-2024 08:09-0400 Body mass index (BMI) [Ratio] 29.48 kg/m2 Toya Siddiqui LPN [facility], [facility].; [facility], [facility]. 09-21-2024 08:09-0400 Body surface area Derived from formula 1.7 m2 Toya Siddiqui LPN [facility], [facility].; [facility]. 09-21-2024 08:09-0400 Body weight 70.76 kg Toya Siddiqui LPN [facility], [facility].; [facility], [facility]. 09-21-2024 08:09-0400 Diastolic blood pressure 76 mm[Hg] Toya Siddiqui LPN [facility], [facility].; [facility], [facility]. Comment on above: Patient Position: Si tting; Cuff Location: Left Arm; Cuff Size: Standard 09-21-2024 08:09-0400 Heart rate 96 /min Toya Siddiqui LPN [facility], [facility].; [facility], [employer]. Comment on above: Pattern: Regular 09-21-2024 08:09-0400 Systolic blood pressure 111 mm[Hg] Toya Siddiqui [employer]OW P[employer]CHER [facility], [facility].; [facility], [facility]. Comment on above: Patient Position: Si tting; Cuff Location: Left Arm; Cuff Size: Standard 09-03-2022 10:34-0400 Body height 154.94 cm Christine Lambert [employer] [facility], [facility].; [facility], [facility]. 09-03-2022 10:34-0400 Body mass index (BMI) [Ratio] 30.23 kg/m2 Christine Lambert [employer] [facility], [facility].; [facility], [facility]. 09-03-2022 10:34-0400 Body surface area Derived from formula 1.72 m2 Christine Lambert [employer] [facility], [facility].; [facility] 09-03-2022 10:34-0400 Body temperature 97.8 [degF] Christine Lambert [facility], [facility].; [employer], [employer]. Comment on above: Method: Tympanic 09-03-2022 10:34-0400 Body weight 72.58 kg Christine Lambert LPN [facility], [facility] [employer] 09-03-2022 10:34-0400 Diastolic blood pressure 75 mm[Hg] Christine Lambert LPN [facility] [employer] Comment on above: Patient Position: Si tting; Cuff Location: Left Arm; Cuff Size: Large 09-03-2022 10:34-0400 Heart rate 91 /min Christine Lambert LPN [facility], [facility] [employer] Comment on above: Pattern: Regular 09-03-2022 10:34-0400 Systolic blood pressure 105 mm[Hg] Christine Lambert LPN [facility] [employer] Comment on above: Patient Position: Si tting; Cuff Location: Left Arm; Cuff Size: Large 12-30-2018 08:25-0400 Body height 154.94 cm Christine Lambert [facility] [employer] 12-30-2018 08:25-0400 Body mass index (BMI) [Ratio] 27.59 kg/m2 Christine Lambert [facility] [employer] 12-30-2018 08:25-0400 Body surface area Derived from formula 1.65 m2 MarciaMalu Lambert [employer] [facility] [employer] 12-30-2018 08:25-0400 Body weight 66.23 kg Christine Lambert [facility] [employer], [employer] 12-30-2018 08:25-0400 Diastolic blood pressure 79 mm[Hg] Christine Lambert [facility] [employer], [employer] Comment on above: Patient Position: Si tting; Cuff Location: Left Arm; Cuff Size: Large 12-30-2018 08:25-0400 Heart rate 98 /min Christine Lambert C[employer] P[employer]ER [facility] [employer] Comment on above: Pattern: Regular 12-30-2018 08:04-4700 Systolic blood pressure 126 mm[Hg] Christine Lambert KIM[employer] Comment on above: Patient Position: Si tting; Cuff Location: Left Arm; Cuff Size: Large Encounters Encounter Date Encounter Type Care Provider Facility Start: 02-07-2025 ambulatory Salinas Mcintosh Facility:[facility] Start: 01-21-2025 End: 01-21-2025 ambulatory José Manuel Villalobos [place] [place] Start: 11-12-2024 End: 11-12-2024 Patient encounter procedure Sheila Alonso PA-C Work Phone: [employer] Start: 09-21-2024 End: 09-21-2024 Office outpatient visit 15 minutes Sheila Alonso PA-C Work Phone: [employer] Start: 09-03-2022 End: 09-03-2022 Office outpatient visit 15 minutes Sheila Alonso PA-C Work Phone: [employer] Start: 03-08-2019 End: 03-08-2019 Orders Sheila Alonso PA-C Work Phone: [employer]. Start: 03-08-2019 End: 03-08-2019 Historical Summary Sheila Alonso PA-C Work Phone: [employer] Start: 03-01-2019 End: 03-01-2019 Patient encounter procedure EMETERIO PEREZ [facility] Start: 02-08-2019 End: 02-08-2019 Orders Sheila Alonso PA-C Work Phone: [employer]. Start: 12-30-2018 End: 12-30-2018 Office outpatient visit 15 minutes Sheila Alonso PA-C Work Phone: [employer] Start: 07-30-2018 End: 07-31-2018 Patient encounter procedure ELSI DELCID Facility:A Start: 06-11-2018 End: 06-13-2018 Evaluation and management of inpatient JESSY FelixManolo ELLIOTT Facility:B Procedures Date Procedure Procedure Detail Performing Clinician Start: 02-08-2019 End: 03-08-2019 soft tissue head & neck real time imge docm Elsi Jo [employer] Hernia Christine Ross ey [employer] Comment on above: 2014 Immunizations Immunization Date Immunization Notes Care Provider Jazmyn amaro 06-25-1990 measles, mumps and rubella virus vaccine Sheila [facility]-C [facility] 06-25-1990 diphtheria, tetanus toxoids and acellular pertussis vaccine Sheila Alonso PA-C Work Phone: [facility] 06-25-1990 poliovirus vaccine, inactivated Sheila Alonso PA-C Work Phone: [facility] 05-01-1989 diphtheria, tetanus toxoids and acellular pertussis vaccine Sheila Alonso PA-C Work Phone: [facility] 05-01-1989 poliovirus vaccine, inactivated Sheila Alonso PA-C Work Phone: [employer]; [facility] Payers Date Payer Category Payer Unknown [id number] 2024 Unknown [id number] 2018 Self-pay 1988 Unknown [id number] 1988 Unknown [id number] 1988 Unknown [id number] Unknown Unknown [id number] [id number] Unknown [id number] [id number] [id number] Social History Date Type Detail Facility Female [facility] Work Phone: Tobacco smoking consumption unknown [employer]; [employer] Work Phone: Alcohol Use: Alcohol Use: ; None. [facility] [employer]ine Use Caffeine Use [employer]; [employer] Tobacco Use: Tobacco Use: ; N ever smoker. [facility]; [employer] Never smoked tobacco [employer]; [employer] Work Phone: NEGATED: Highlighted row No Social History Information Available No Social History Information Available [employer]; [employer] Work Phone: Summary Purpose Family History No Family History Records Found Cerebrovascular Accident Status:Active Comment s:Maternal Grandfather. Cerebrovascular Accident Status:Active Comment s:Maternal Grandfather. Cerebrovascular Accident Status:Active Comment s:Maternal Grandfather. Advance Directives No Advanced Directives Records FoundNo Advanced Directives Records FoundNo Advanced Directives Records FoundNo Advanced Directives Records FoundNo Advanced Directives Records Found Additional Source Comments INFORMATION SOURCE (unrecogn ized section and content) DATE CREATED AUTHOR 08/18/2018 [facility] DATE CREATED AUTHOR AUTHOR'S ORGANIZ ATION 03/04/2019 [facility] DATE CREATED AUTHOR AUTHOR'S ORGANIZ ATION 05/20/2019 [facility] DATE CREATED AUTHOR AUTHOR'S ORGANIZ ATION 09/10/2019 [facility] DATE CREATED AUTHOR AUTHOR'S ORGANIZ ATION 02/06/2025 [facility] FOR RECORDS PERTAINING TO PATIENTS WHO ARE OR HAVE BEEN ENROLLED IN A CHEMICAL DEPENDENCY/SUBSTANCEABUSE PROGRAM, SOME INFORMATION MAY BE OMITTED. This clinical summary was aggregated from multiple sources. Caution should be exercised in using it in the provision of clinical care. This summary normalizes information from multiple sources, and as a consequence, information in this document may materially change the coding, format and clinical context of patient data. In addition, data may be omitted in some cases. CLINICAL DECISIONS SHOULD BE BASED ON THE PRIMARY CLINICAL RECORDS. [employer] provides no warranty or guarantee of the accuracy or completeness of information in this document.
== END | disposition home or self-care (01) ==
PROVIDERS: PCP Family Medicine; Referring Provider Physician Assistant; Visit Provider Physician Assistant
DX: D17.79 Benign lipomatous neoplasm of other sites (principal)
CPT/HCPCS: 76604

== ENCOUNTER 2025-03-01 09:59 | Day surgery (SDC) | payer SELFPAY, OTHER ==
[2025-03-01] VITALS (9 sets, daily range): BP systolic 108–132; BP diastolic 58–83; PULSE 79–105; RESP 14–20; TEMP 36.4–37.2; O2SAT 99–100; BMI 29.5
--- NOTE | 2025-03-01 10:39 | HP.PCM_ITS ---
HPI - General General Date of Service: 03/01/25 HPI Narrative ANITA MCKEON, is a 34 F who presents lipoma excision of her back. Ultrasound results showed likely lipoma. Dr. Villalobos discussed surgical excision with drain placement. Patient is positive for MTHFR gene and was tested after having 1 stillbirth at midterm. Caprini score of 5. Dr. Villalobos discussed recommendation to stay overnight for observation with 7 days of subcutaneous lovenox. Denies changes to her health since her last visit. Denies fever, chills, rash, dental infection, nausea, vomiting. HPI from 01/21/25: Patient is a 34-year-old female presenting today for initial consultation for cyst on her back. Past medical history significant for MTHFR gene. She noticed this cyst 2 years ago and has been growing steadily. The area does not cause any pain, drainage. She notices it when she is laying down on the back and would like the cyst removed. She has had follow-up lipoma on her abdomen removed before she was undergoing a hernia repair and healed well without issues. She has not had imaging of the cyst. She denies fever, chills, unintentional weight loss, lymph node swelling. She is not on blood thinners or antiplatelets, not a diabetic, no bleeding disorders, non-smoker. [facility] Medical History (Updated 02/22/25 @ 09:17 by Fl[place]io [place]) MTHFR gene mutation Non-smoker Lipoma of back Thyroid nodule Thyroid mass Home Medications ?Medication ?Instructions ?Recorded ?Last Taken ?Type ascorbic acid (vitamin C) 1 g PO DAILY 03/18/19 Unknow n History cholecalciferol (vitamin D3) 50 2,000 unit PO DAILY Unknown History mcg/drop (2,000 unit/drop) oral drops (Fbz-H-Alvzbeu Forte) cyanocobalamin (B12)-cobamamide 1 tab sublingual DAILY 03/18/19 Unknown History 5,000 mcg-100 mcg sublingual tablet licorice root (G.glabra) 450 mg 450 mg PO DAILY Unknown History capsule HERBAL TINCTURE 1 dose PO DAILY 02/22/25 Unk nown History MAGNESIUM OIL 1 dose PO QHS 02/22/25 Unkno wn History ferrous sulfate 325 mg (65 mg 325 mg PO DAILY PRN SUPP LEMENT 02/22/25 Unknown History iron) tablet (Feosol) multivitamin (Daily Value tablet) 1 tab PO DAILY 02/22 Unknown History Allergy/AdvReac Type Severity Reaction Status Date / Time Iodinated Contrast Media Allergy Intermediate tongue Verified 02/22/25 09:03 swelling Family History Father No problems noted. Surgical History Status post biopsy of thyroid gland (~03/2019) History of umbilical hernia repair delivery, delivered, current hospitalization Social History Smoking Status: Never smoker Physical Exam Narrative Alert and oriented in no acute distress. Sitting in room comfortably Left upper back well-circumscribed, mobile 7 cm x 6 cm cyst that is slightly crosses over the midline. No erythema, induration, drainage. Nontender No auricular, submandibular, clavicular, axillary lymphadenopathy Assessment & Plan Assessment/Plan (1) Lipoma of back: PLAN: Excision with Ancef for surgical ppx. Keep overnight with 7 days of subcutaneous lovenox postoperatively.
[2025-03-01] MEDS: Lactated Ringers 1,000 ML 15 ML IV (10:47)
--- OUTSIDE RECORDS SUMMARY | 2025-03-01 10:49 | XMS RPT_ITS | CCD ---
Author Organization [facility] Care Team Providers Care Raw Stock Machine Feeder Name Role Phone JESSY ELLIOTT Attending Unavailable JESSY ELLIOTT Primary Care Unavailable JESSY ELLIOTT Admitting Unavailable ELSI DELCID Attending Unavailable JESSY ELLIOTT Primary Care Unavailable EMETERIO PEREZ Admitting Unavailable EMETERIO PEREZ Attending Unavailable EMETERIO PEREZ Primary Care Unavailable Gavin BUNDY, Sheila Felix Unavailable [facility] Unavailable Omar BULKHEAD CARPENTER, Elvira Unavailable Emeterio Perez MD Unavailable Artur HARRIS, Toya Unavailable Unavailable Zaugg BULKHEAD CARPENTER, Elsi Unavailable Unavailable (Murphy), [facility] Unavailable José Manuel Villalobos Attending Unavailable Delaney Kelly Primary Care Unavailable Salinas Mcintosh Referring Unavailable Salinas Mcintosh Attending Unavailable Allergies Allergy Classification Reported Allergen(s) Allergy Type Date of Onset Reaction(s) Facility (1 source) CONTRAST MEDIA, IODINE RELATED Drug allergy (disorder) [facility] Repository (3 sources) Iodine Drug Allergy [facility], [facility].; [facility], [facility]. (1 source) Iodinated Contrast Media Drug allergy (disorder) 01-21-2025 [facility] Repository Medications Completed/Discontinued Medications Medication Drug Class(es) [...] Test Name Value Interpretation Reference Range Facility Cheston 02-07-2025 Chest [facility] Imaging Services [address] [place] [address] Chest MR#: [id number] Acct: [id number] Name: SHAMA MCKEON Rep #: [id number] : 1990 F 34 From: Igor vargas MD PCP: Dr. Delaney Kelly MD Status: REG CLI Study: Chest Date of Exam: 02/07/25 Exam# [id number] Ordering Dr: Salinas Mcintosh PROCEDURE: CHEST 02/07/2025 REASON FOR EXAM: LIPOMA, CONCERN FOR SPINE INVOLVEMENT TECHNIQUE: Procedure Code: USCHEST Modality: US Procedure: CHEST The palpable abnormality overlying the right upper thorax posteriorly was examined with ultrasound. . COMPARISON: None FINDINGS: The palpable abnormality corresponds to a 6 cm by 4.9 cm by 1.2 cm well-circumscribed isoechoic mass most likely representing a lipoma. US/Chest IMPRESSION: The palpable abnormality most likely corresponds to a 6 cm x 4.9 cm 1.2 cm lipoma. Reading Location: [facility]- CC: Dr. Delaney Kelly MD; CESILIA Ramírez Lmft: Signed Normal [facility] Plastic Surgery Visit Report on 01-21-2025 Plastic Surgery Visit Report [facility] Plastic Reconstructive Surgery [address], [address] [place] [address] OFFICE VISIT Date of Service: 01/21/25 MR#: [id number] Acct: [id number] Name: SHAMA MCKEON Rep #: [id number] : 1990 Provider: Dr. José Manuel Villalobos MD Age/Sex: 34/F Location: [facility] Status: Signed Reviewed note and agree Intake [...] 03/18/1901/21 History mcg/drop (2,000 unit/drop) oral drops (Ttk-B-Cudywor Forte) cyanocobalamin (B12)-cobamamide tab sublingual 03/18/19 01/21/25 H istory 5,000 mcg-100 mcg sublingual tablet iron 75 mg-vit C 60 mg-folate 1 1 tab PO DAILY 03/18/19 01/21/25 H istory mg-B12 10 gvp-qpmk-gqcesop capsule licorice root (G.glabra) 450 mg mg [...] of Care (more content not included)... Normal [facility] Progress Noteon 08-12-2019 Lmft Authentication Interface Message Text Shama Mckeon is [...] I will refer this child to our director of pediatric rehabilitation for this process. After alignment of the [...] evaluation after . They met with our case management social worker as well. Dr. Ty spoke [...] Plastic & Reconstructive Surgery Fellow PGY-7 Pager #[phone] I have personally shared in this visit [...] MD, FACS Chief, Division of Plastic Surgery [facility] 08/13/2019 [facility] Progress Noteon 07-21-2019 Lmft Authentication Interface Message Text Dating for consult [facility] CNOVon 05-20-2019 CNOV Office Visit (AGM[facility]) SHAMA MCKEON ([id number]) 1990 F Date Time Provider Department 05/20/19 2:30 PM DELANEY DE LEÓN JR AGM[facility] During your visit today, we recorded the following information about you: Blood pressure Weight Height 97/61 73 kg 1.549 m Christine Cintron, GUSTAVO 05/20/2019 3:24 PM Signed Pt reports feeling regular movement. She declines dopplers at this time. Delaney De León Jr, MD 05/20/2019 5:20 PM Signed Date: May 20, 2019 PROVIDER: Camila Mckeon Re: Shama Mckeon : 1990 Dear Camila Thank you [...] Medications Medication Sig Dispense Refill - PNV 962-YTUR-DROCKK 1-DSS-DHA ORAL Take by mouth once daily. [...] call me. Sincerely, Delaney De León Junior, M.D. [facility] Delaney De León Jr, MD 05/20/2019 5:20 PM Signed ? Please call the office before going to the hospital. ? If you are , go to the ER at the [facility]. Do not go to the outlying ER?s ([place], [place] or [place]). ? If you need to go to an ER and cannot or will not go downtown, please use one of [facility]?s ER?s (not [facility], [place] or [facility]). Allergies As of Date: 05/20/2019 Noted Allergy Reaction IODINE 05/20/2019 2 - Rash 7 - Swelling Date Reviewed: 05/20/2019 Reviewed by: Christine (Gustavo) Saida - Fully Assessed Reason for Visit: Consult [...] [O09.299] Prescriptions as of 05/20/2019 Sig: PNV 013-RUFR-SMGGRP 1-DSS-DHA* Take by mouth once daily. NJOKZTRKZUXBOOK-TWWY-S ILK THI* Take by mouth once daily. Problem List As Of Date 05/20/2019 Noted Resolved History of delivery [Z98.891] 05/20/2019 Thyroid nodule [E04.1] 05/20/2019 High risk multigravida, unspecified trimester [*05/20/2019 History of anomaly in prior , cu*05/20/2019 Other instructions from your clinician: ? Please call the office before going to the hospital. ? If you are , go to the ER at the [facility]. Do not go to the outlying ER?s ([place], [place] or [place]). ? If you need to go to an ER and cannot or will not go downtown, please use one of [facility]?s ER?s (not [facility], [place] or [facility]). Visit Notes: >> Christine (Rn) Saida Ayleen May 20, 2019 3:23 PM Status: Signed Pt reports feeling regular movement. She declines dopplers at this time. Disposition: Return As needed. Follow-up and Disposition History Recorded Encounter Status:Closed by DELANEY DE LEÓN JR, MD on 05/20/19 [facility] SH[facility]ON ([id number]) 1990 F Date Time Provider Department 05/20/19 2:15 PM US RM1 LEASE EXAMINER AG [facility] During your visit today, we recorded the following information about you: Manolo Guerrier MD 05/20/2019 4:53 PM Signed ? Please call the office before going to the hospital. ? If you are , go to the ER at the [facility]. Do not go to the outlying ER?s ([place] or [place]). ? If you need to go to an ER and cannot or will not go downtown, please use one of [facility]?s ER?s (not [place], [place] or [place]). Referring Provider: DELANEY DE LEÓN JR [[id number]] Allergies As of Date: 05/20/2019 Noted Allergy Reaction IODINE 05/20/2019 2 - Rash 7 - Swelling Date Reviewed: 05/20/2019 Reviewed by: Christine (Gustavo) Saida - Fully Assessed Visit Diagnosis:Bilateral complete cleft lip of fetus affecting antepartum care of mother, single or unspecified fetus [O35.8XX0] Prescriptions as of 05/20/2019 Sig: PNV 321-KWEJ-ODQLDF 1-DSS-DHA* Take by mouth once daily. KRUDLJSIZJEIBVO-DNRB-R ILK THI* Take by mouth once daily. Problem List As Of Date: 05/20/2019 (None) Other instructions from your clinician: ? Please call the office before going to the hospital. ? If you are , go to the ER at the [facility]. Do not go to the outlying ER?s ([place] or [place]). ? If you need to go to an ER and cannot or will not go downtown, please use one of [facility]?s ER?s (not [place], [place] or [place]). Encounter Status:Closed by MANOLO GUERRIER MD on 05/20/19 Normal [facility] PROGRESSon 05-20-2019 PROGRESS HNO ID: [id number] Author: Delaney De León Jr. Service: ? Author Type: Physician Type: Progress Notes Filed: 05/20/2019 5:20 PM Note Text: Date: May 20, 2019 PROVIDER: Camila Mckeon Re: Shama Mckeon : 1990 Dear Camila Thank you [...] Medications Medication Sig Dispense Refill - PNV 636-NTRT-AMHZWR 1-DSS-DHA ORAL Take by mouth once daily. [...] Sincerely, Delaney De León Junior, M.D., FACOG [facility] THYROIDon 03-01-2019 [place] [address] Patient: SHAMA MCKEON Phone#: : 1990 Age: 28 Gender: F Pt. Type: Out Account: [id number] Location: Ordering: EMETERIO PEREZ Exam Date: 03/01/2019/8:43 Family Phys: Charge Code: [id number] Physician: [place] Order #: [id number] DLP Dose#: PROCEDURE: THYROID ULTRASOUND COMPARISON: None. [...] Garber MD on 03/01/2019 at 14:42 Normal [facility] APCVon 08-04-2018 APC Factor V Resistance 2.8 ratio Normal [facility] ([place]) Comment on above: Result Comment: This APCV result demonstrates no Resistance to Activated Protein C. APC Factor V Resistance Reference Range: <= 2.3 Positive > 2.3 Negative Performed By: #### P ABO, ANEU, RPR, HIV, HBSAG, ADIFF, PABS, VARIS, RUBIS, CBC #### [address] [address] [id number] 08-03-2018 Beta2 Glycoprotein IgG <9 Normal <20 [facility] ([place]) Comment on above: Result Comment: < 20 SGU Negative 20-80 SGU Low Positive > 80 SGU High Positive These results were obtained with the Inova QUANTA Lite B2 GPI IgG [place]. B2 GPI IgG values obtained with different manufacturers' assay methods may not be used interchangeably. The magnitude of the reported IgG levels cannot be correlated to an endpoint titer. Performed By: [place] [id number] [place] [address] [employer]: Bre Yañez M.D. CLIA#: [id number] Phone#: Performed By: #### P ABO, ANEU, RPR, HIV, HBSAG, ADIFF, PABS, VARIS, RUBIS, CBC #### [place] [address] Protein mass conc g/dL Normal <20 [facility] ([place]) Comment on above: Result Comment: < 20 SMU Negative 20-80 SMU Low Positive > 80 SMU High Positive These results were obtained with the Inova QUANTA Lite B2 GPI IgM [place]. B2 GPI IgM values obtained with different manufacturers' assay methods may not be used interchangeably. The magnitude of the reported IgM levels cannot be correlated to an endpoint titer. Performed By: [address] [place] [address] [employer]: Bre Yañez M.D. CLIA#: [id number] Phone#: Performed By: #### P ABO, ANEU, RPR, HIV, HBSAG, ADIFF, PABS, VARIS, RUBIS, CBC #### [address] [address] BETAAon 08-02-2018 Beta-2 Glycoprotein Abs, IgA 2 Normal [facility] ([place]) Comment on above: Result Comment: Refe rence range: 0 to 20 Unit: MOLLY (NOTE) Performed by [facility], [address] [facility] [place] [address] [email or web address], Judd Balderrama MD, Lab. Director Performed By: #### P ABO, ANEU, RPR, HIV, HBSAG, ADIFF, PABS, VARIS, RUBIS, CBC #### [place] [address] PHOGMAon 08-02-2018 Phosphatidylserine IgA 0 Normal [facility] ([place]) Comment on above: Result Comment: Refe rence range: 0 to 19 Unit: U/mL (NOTE) Performed by [facility], [address] [facility] [place] [address] [email or web address], Judd Balderrama MD, Lab. Director Performed By: #### P ABO, ANEU, RPR, HIV, HBSAG, ADIFF, PABS, VARIS, RUBIS, CBC #### [place] [address] Phosphatidylserine IgG 8 Normal [facility] ([place]) Comment on above: Result Comment: Refe rence [...] HBSAG, ADIFF, PABS, VARIS, RUBIS, CBC #### [place] [address] Phosphatidylserine IgM 14 Normal [facility] ([place]) Comment on above: Result Comment: Refe rence [...] HBSAG, ADIFF, PABS, VARIS, RUBIS, CBC #### [place] [address] MTHFRon 07-21-2018 MTHFR (NOTE) Normal [facility] ([place]) Comment on above: Result Comment: Perf orming Pathologist: Bre Babcock Interpretation: 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 25-32% of [...] genomic DNA is evaluated for the c.665C>T (p.Pzd169Zms; g.[id number]) and c.1286A>C (p.Yea289Eqz; g.[id number]) variants in the MTHFR gene [RefSeq [id number], GRCh38/hg38] by multiplex polymerase chain reaction (PCR) followed by melting curve analysis. This test was developed and its performance characteristics determined by [facility]'s José Manuel Oriana [facility] [place] ([facility]). It has not been cleared or approved by the FDA. [facility] is regulated under CLIA as qualified to [...] in . ACOG Practice Bulletin. No. 197. [place] [employer]stetric[employer] Gynec[employer]. Obstet Gynecol 2018;132:e18???34. 3) ACCF/AHA Guideline for Assessment of Cardiovascular Risk In Asymptomatic Adults: A Report of the [place] [employer] Foundation/[place] Heart Association Task Force on Practice Guidelines. J Am Rose Cardiol. 2010;56(25):50???103. 4) Romero NOVAK, Neva E. MTHFR: Addressing Genetic Counseling Dilemmas Using Evidence-Based Literature. J Caitlin [facility]. 2016;25:901-11. 5) Isabel SE, Kennedy CJ, Rashaun GUTIERREZ. ACMG Practice Guideline: lack of evidence for MTHFR polymorphism testing. Caitlin Med 2013;15:153-156. 6) Pharmacogenomic summary Performed By: [facility] [address] [place] [address] [employer]: Bre Yañez M.D. CLIA#: [id number] Phone#: Performed By: #### P ABO, ANEU, RPR, HIV, HBSAG, ADIFF, PABS, VARIS, RUBIS, CBC #### [address] 07-20-2018 IgG Cardiolipin Ab 13 GPL High 0-9 [facility] ([place]) Comment on above: Result Comment: <10 GPL Negative 10-40 GPL Equivocal >40 GPL Positive The following results were obtained with the Inova QUANTA Lite PA IgG III [place]. Cardiolipin IgG values obtained with the different manufacturers' assay methods may not be used interchangeably. The magnitude of the reported IgG levels cannot be correlated to an endpoint titer. Performed By: [place] [address] [employer]: Bre Yañez M.D. CLIA#: [id number] Phone#: Performed By: #### P ABO, ANEU, RPR, HIV, HBSAG, ADIFF, PABS, VARIS, RUBIS, CBC #### [place] [address] CARDIMon 07-20-2018 IgM Cardiolipin Ab <9 Normal 0-11 [facility] ([place]) Comment on above: Result Comment: <12 MPL Negative 12-40 MPL Equivocal >40 MPL Positive The following results were obtained with the Inova QUANTA Lite PA IgM III [place]. Cardiolipin IgM values obtained with different manufacturers' assay methods may not be used interchangeably. The magnitude of the reported IgM levels cannot be correlated to an endpoint titer. Performed By: [place] [address] [employer]: Bre Yañez M.D. CLIA#: [id number] Phone#: Performed By: #### P ABO, ANEU, RPR, HIV, HBSAG, ADIFF, PABS, VARIS, RUBIS, CBC #### [place] [address] .Auto Diffon 06-11-2018 Ammonia mass conc (P) 0.40 10 3/mcL Normal 0.15-1.00 [facility] ([place]) Comment on above: Performed By: #### P ABO, ANEU, RPR, HIV, HBSAG, ADIFF, PABS, VARIS, RUBIS, CBC #### [place] [address] Basophils #/vol (Bld) 0.00 10 3/mcL Normal 0.00-0.19 [facility] ([place]) Comment on above: Performed By: #### P ABO, ANEU, RPR, HIV, HBSAG, ADIFF, PABS, VARIS, RUBIS, CBC #### [address] [address] Basophils/100 WBC (Bld) 0.3 % Normal 0.0-2.5 [facility] ([place]) Comment on above: Performed By: #### P ABO, ANEU, RPR, HIV, HBSAG, ADIFF, PABS, VARIS, RUBIS, CBC #### [address] [address] Eosinophils #/vol (Bld) 0.20 10 3/mcL Normal 0.00-0.40 [facility] ([place]) Comment on above: Performed By: #### P ABO, ANEU, RPR, HIV, HBSAG, ADIFF, PABS, VARIS, RUBIS, CBC #### [address] [address] Eosinophils/100 WBC (Bld) 2.0 % Normal 0.0-7.0 [facility] ([place]) Comment on above: Performed By: #### P ABO, ANEU, RPR, HIV, HBSAG, ADIFF, PABS, VARIS, RUBIS, CBC #### [address] [address] Lymphocytes #/vol (Bld) 2.00 10 3/mcL Normal 0.77-3.85 [facility] ([place]) Comment on above: Performed By: #### P ABO, ANEU, RPR, HIV, HBSAG, ADIFF, PABS, VARIS, RUBIS, CBC #### [address] [address] Lymphocytes/100 WBC (Bld) 24.1 % Normal 10.0-50.0 [facility] ([place]) Comment on above: Performed By: #### P ABO, ANEU, RPR, HIV, HBSAG, ADIFF, PABS, VARIS, RUBIS, CBC #### [address] [address] Monocytes/100 WBC (Bld) 4.9 % Normal 1.7-13.0 [facility] ([place]) Comment on above: Performed By: #### P ABO, ANEU, RPR, HIV, HBSAG, ADIFF, PABS, VARIS, RUBIS, CBC #### [place] [address] Neutrophils/100 WBC (Bld) 68.7 % Normal 37.0-80.0 [facility] ([place]) Comment on above: Performed By: #### P ABO, ANEU, RPR, HIV, HBSAG, ADIFF, PABS, VARIS, RUBIS, CBC #### [place] [address] .NEUABSon 06-11-2018 Neutrophils #/vol (Bld) 5.80 10 3/mcL Normal 2.85-6.16 [facility] ([place]) Comment on above: Performed By: #### P ABO, ANEU, RPR, HIV, HBSAG, ADIFF, PABS, VARIS, RUBIS, CBC #### [place] [address] CBCon 06-11-2018 Erythrocyte distribution width Ratio (RBC) 13.3 % Normal 11.5-14.5 [facility] ([place]) Comment on above: Performed By: #### P ABO, ANEU, RPR, HIV, HBSAG, ADIFF, PABS, VARIS, RUBIS, CBC #### [place] [address] Hematocrit Volume Fraction (Bld) 34.2 % Low 37.0-47.0 [facility] ([place]) Comment on above: Performed By: #### P ABO, ANEU, RPR, HIV, HBSAG, ADIFF, PABS, VARIS, RUBIS, CBC #### [place] [address] Hemoglobin mass conc (Bld) 11.9 G/dL Low 12.0-16.0 [facility] ([place]) Comment on above: Performed By: #### P ABO, ANEU, RPR, HIV, HBSAG, ADIFF, PABS, VARIS, RUBIS, CBC #### [place] [address] MCH Entitic mass (RBC) 32.4 pg High 27.0-31.2 [facility] ([place]) Comment on above: Performed By: #### P ABO, ANEU, RPR, HIV, HBSAG, ADIFF, PABS, VARIS, RUBIS, CBC #### [place] [address] MCHC mass conc (RBC) 34.7 G/dL Normal 33.0-37.0 [facility] ([place]) Comment on above: Performed By: #### P ABO, ANEU, RPR, HIV, HBSAG, ADIFF, PABS, VARIS, RUBIS, CBC #### [place] [address] MCV Entitic volume (RBC) 93.3 fL Normal 80.0-94.0 [facility] ([place]) Comment on above: Performed By: #### P ABO, ANEU, RPR, HIV, HBSAG, ADIFF, PABS, VARIS, RUBIS, CBC #### [place] [address] Platelet mean volume Entitic volume (Bld) 7.2 fL Low 7.4-10.4 [facility] ([place]) Comment on above: Performed By: #### P ABO, ANEU, RPR, HIV, HBSAG, ADIFF, PABS, VARIS, RUBIS, CBC #### [place] [address] Platelets #/vol (Bld) 304 10 3/mcL Normal 130-400 [facility] ([place]) Comment on above: Performed By: #### P ABO, ANEU, RPR, HIV, HBSAG, ADIFF, PABS, VARIS, RUBIS, CBC #### [place] [address] RBC #/vol (Bld) 3.66 10 6/mcL Low 4.20-5.40 [facility] ([place]) Comment on above: Performed By: #### P ABO, ANEU, RPR, HIV, HBSAG, ADIFF, PABS, VARIS, RUBIS, CBC #### [place] [address] WBC #/vol (Bld) 8.40 10 3/mcL Normal 4.60-10.80 [facility] ([place]) Comment on above: Performed By: #### P ABO, ANEU, RPR, HIV, HBSAG, ADIFF, PABS, VARIS, RUBIS, CBC #### [place] [address] Gel ABOon 06-11-2018 ABO/Rh Interp Negative [facility] ([place]) Comment on above: Performed By: #### P ABO, ANEU, RPR, HIV, HBSAG, ADIFF, PABS, VARIS, RUBIS, CBC #### [place] [address] Gel ABSon 06-11-2018 Antibody Screen Gel Negative [facility] ([place]) Comment on above: Performed By: #### P ABO, ANEU, RPR, HIV, HBSAG, ADIFF, PABS, VARIS, RUBIS, CBC #### [place] [address] VARISon 05-20-[address] Positive Normal [facility] ([place]) Comment on above: Result Comment: This immune [...] HBSAG, ADIFF, PABS, VARIS, RUBIS, CBC #### [place] [address] .Auto Diffon 05-19-2018 Ammonia mass conc (P) 0.80 10 3/mcL Normal 0.09-1.40 [facility] ([place]) Comment on above: Performed By: #### P ABO, ANEU, RPR, HIV, HBSAG, ADIFF, PABS, VARIS, RUBIS, CBC #### [address] [address] Basophils #/vol (Bld) 0.00 10 3/mcL Normal 0.00-0.27 [facility] ([place]) Comment on above: Performed By: #### P ABO, ANEU, RPR, HIV, HBSAG, ADIFF, PABS, VARIS, RUBIS, CBC #### [address] [address] Basophils/100 WBC (Bld) 0.4 % Normal 0.0-2.5 [facility] ([place]) Comment on above: Performed By: #### P ABO, ANEU, RPR, HIV, HBSAG, ADIFF, PABS, VARIS, RUBIS, CBC #### [address] [address] Eosinophils #/vol (Bld) 0.30 10 3/mcL Normal 0.00-0.65 [facility] ([place]) Comment on above: Performed By: #### P ABO, ANEU, RPR, HIV, HBSAG, ADIFF, PABS, VARIS, RUBIS, CBC #### [address] [address] Eosinophils/100 WBC (Bld) 2.5 % Normal 0.0-6.0 [facility] ([place]) Comment on above: Performed By: #### P ABO, ANEU, RPR, HIV, HBSAG, ADIFF, PABS, VARIS, RUBIS, CBC #### [address] [address] Lymphocytes #/vol (Bld) 2.80 10 3/mcL Normal 0.90-4.32 [facility] ([place]) Comment on above: Performed By: #### P ABO, ANEU, RPR, HIV, HBSAG, ADIFF, PABS, VARIS, RUBIS, CBC #### [address] [address] Lymphocytes/100 WBC (Bld) 23.1 % Normal 20.0-40.0 [facility] ([place]) Comment on above: Performed By: #### P ABO, ANEU, RPR, HIV, HBSAG, ADIFF, PABS, VARIS, RUBIS, CBC #### [place] [address] Monocytes/100 WBC (Bld) 6.4 % Normal 2.0-13.0 [facility] ([place]) Comment on above: Performed By: #### P ABO, ANEU, RPR, HIV, HBSAG, ADIFF, PABS, VARIS, RUBIS, CBC #### [place] [id number] Neutrophils/100 WBC (Bld) 67.6 % Normal 50.0-75.0 [facility] ([place]) Comment on above: Performed By: #### P ABO, ANEU, RPR, HIV, HBSAG, ADIFF, PABS, VARIS, RUBIS, CBC #### [place] [id number] .NEUABSon 05-19-2018 Neutrophils #/vol (Bld) 8.20 10 3/mcL High 2.25-8.10 [facility] ([place]) Comment on above: Performed By: #### P ABO, ANEU, RPR, HIV, HBSAG, ADIFF, PABS, VARIS, RUBIS, CBC #### [place] [address] CBCon 05-19-2018 Erythrocyte distribution width Ratio (RBC) 12.9 % Normal 11.5-15.5 [facility] ([place]) Comment on above: Performed By: #### P ABO, ANEU, RPR, HIV, HBSAG, ADIFF, PABS, VARIS, RUBIS, CBC #### [place] [address] Hematocrit Volume Fraction (Bld) 35.8 % Normal 34.0-46.0 [facility] ([place]) Comment on above: Performed By: #### P ABO, ANEU, RPR, HIV, HBSAG, ADIFF, PABS, VARIS, RUBIS, CBC #### [place] [address] Hemoglobin mass conc (Bld) 12.5 G/dL Normal 12.0-16.0 [facility] ([place]) Comment on above: Performed By: #### P ABO, ANEU, RPR, HIV, HBSAG, ADIFF, PABS, VARIS, RUBIS, CBC #### [place] [address] MCH Entitic mass (RBC) 32.0 pg Normal 27.0-33.0 [facility] ([place]) Comment on above: Performed By: #### P ABO, ANEU, RPR, HIV, HBSAG, ADIFF, PABS, VARIS, RUBIS, CBC #### [place] [address] MCHC mass conc (RBC) 35.0 G/dL Normal 32.0-36.0 [facility] ([place]) Comment on above: Performed By: #### P ABO, ANEU, RPR, HIV, HBSAG, ADIFF, PABS, VARIS, RUBIS, CBC #### [place] [address] MCV Entitic volume (RBC) 91.5 fL Normal 80.0-99.0 [facility] ([place]) Comment on above: Performed By: #### P ABO, ANEU, RPR, HIV, HBSAG, ADIFF, PABS, VARIS, RUBIS, CBC #### [place] [address] Platelet mean volume Entitic volume (Bld) 8.5 fL Normal 6.6-10.5 [facility] ([place]) Comment on above: Performed By: #### P ABO, ANEU, RPR, HIV, HBSAG, ADIFF, PABS, VARIS, RUBIS, CBC #### [place] [address] Platelets #/vol (Bld) 276 10 3/mcL Normal 150-450 [facility] ([place]) Comment on above: Performed By: #### P ABO, ANEU, RPR, HIV, HBSAG, ADIFF, PABS, VARIS, RUBIS, CBC #### [place] [address] RBC #/vol (Bld) 3.91 10 6/mcL Low 4.10-5.30 [facility] ([place]) Comment on above: Performed By: #### P ABO, ANEU, RPR, HIV, HBSAG, ADIFF, PABS, VARIS, RUBIS, CBC #### [place] [address] WBC #/vol (Bld) 12.20 10 3/mcL High 4.50-10.80 [facility] ([place]) Comment on above: Performed By: #### P ABO, ANEU, RPR, HIV, HBSAG, ADIFF, PABS, VARIS, RUBIS, CBC #### [place] [address] HBSAGon 05-19-2018 Hep B Surf Ag Negative Normal Negative [facility] ([place]) Comment on above: Performed By: #### P ABO, ANEU, RPR, HIV, HBSAG, ADIFF, PABS, VARIS, RUBIS, CBC #### [place] [address] HIVon 05-19-2018 HIV 1/2 Ab Normal Negative [facility] ([place]) Comment on above: Result Comment: Nega tive Specimen is negative for anti-HIV-1 and anti-HIV-2. Performed By: #### P ABO, ANEU, RPR, HIV, HBSAG, ADIFF, PABS, VARIS, RUBIS, CBC #### [place] [address] PABOon 05-19-2018 PABO/Rh Interp Negative [facility] ([place]) Comment on above: Performed By: #### P ABO, ANEU, RPR, HIV, HBSAG, ADIFF, PABS, VARIS, RUBIS, CBC #### [place] [address] PABSon 05-19-2018 PABS Interp Negative Normal [facility] ([place]) Comment on above: Performed By: #### P ABO, ANEU, RPR, HIV, HBSAG, ADIFF, PABS, VARIS, RUBIS, CBC #### [place] [address] RPRon 05-19-2018 Reagin Ab RPR Ql (S) Non-Reactive Normal Non-Reactive [facility] ([place]) Comment on above: Result Comment: The RPR [...] HBSAG, ADIFF, PABS, VARIS, RUBIS, CBC #### [address] [address] RUBISon 05-19-[address] Positive Normal Positive [facility] ([place]) Comment on above: Result Comment: This immune status assay detects IgM and/or IgG antibody to Rubella. Interpret results in conjunction with clinical history. POS: Antibody detected; exposure at undetermined recent or distant time. If clinically indicated, order Rubella IGM to rule out recent infection. NEG: No antibody detected. Performed By: #### P ABO, ANEU, RPR, HIV, HBSAG, ADIFF, PABS, VARIS, RUBIS, CBC #### [address] [address] Vital Signs Date Time Vital Sign Value Performing Clinician Facility 09-21-2024 08:090400 Body height 154.94 cm Toya Siddiqui LPN [facility], [facility].; [facility], [facility] 09-21-2024 08:09-0400 Body mass index (BMI) [Ratio] 29.48 kg/m2 Toya Siddiqui LPN [facility], [facility].; [facility], [facility] 09-21-2024 08:09-0400 Body surface area Derived from formula 1.7 m2 Toya Siddiqui LPN [facility], [facility].; [facility], [facility] 09-21-2024 08:09-0400 Body weight 70.76 kg Toya Sdidiqui LPN [facility], [facility].; [facility], [facility] 09-21-2024 08:09-0400 Diastolic blood pressure 76 mm[Hg] Toya Siddiqui LPN [facility], [facility].; [facility], [facility]. Comment on above: Patient Position: Si tting; Cuff Location: Left Arm; Cuff Size: Standard 09-21-2024 08:09-0400 Heart rate 96 /min Toyarandy Siddiqui KIMBERLY [facility], [facility].; [facility], [employer]. Comment on above: Pattern: Regular 09-21-2024 08:09-0400 Systolic blood pressure 111 mm[Hg] Toyarandy Siddiqui [facility], [facility].; [employer] [facility], [employer]. Comment on above: Patient Position: Si tting; Cuff Location: Left Arm; Cuff Size: Standard 09-03-2022 10:34-0400 Body height 154.94 cm Christine Lambert [employer] [facility], [facility].; [facility], [facility]. 09-03-2022 10:34-0400 Body mass index (BMI) [Ratio] 30.23 kg/m2 Marcia Fausto [facility], [facility].; [facility], [facility]. 09-03-2022 10:34-0400 Body surface area Derived from formula 1.72 m2 Christine Lambert [facility], [facility].; [employer] [facility], [facility]. 09-03-2022 10:34-0400 Body temperature 97.8 [degF] Christine Lambert [facility], [facility].; [employer] [facility], [employer]. Comment on above: Method: Tympanic 09-03-2022 10:34-0400 Body weight 72.58 kg Christine Brownuckey [employer] [facility], [facility].; [facility] 09-03-2022 10:34-0400 Diastolic blood pressure 75 mm[Hg] Christine Lambert [employer] [facility], [facility].; [employer] [facility], [employer]. Comment on above: Patient Position: Si tting; Cuff Location: Left Arm; Cuff Size: Large 09-03-2022 10:34-0400 Heart rate 91 /min Christine Lambert [employer] [facility], [facility].; [employer] [facility], [employer]. Comment on above: Pattern: Regular 09-03-2022 10:34-0400 Systolic blood pressure 105 mm[Hg] Christine Lambert [facility], [facility].; [facility] [facility]. Comment on above: Patient Position: Si tting; Cuff Location: Left Arm; Cuff Size: Large 12-30-2018 08:25-0400 Body height 154.94 cm Christine Lambert [facility] [employer] [facility], [employer]. 12-30-2018 08:25-0400 Body mass index (BMI) [Ratio] 27.59 kg/m2 Christine Lambert [facility], [facility].; [employer] [facility], [employer]. 12-30-2018 08:25-0400 Body surface area Derived from formula 1.65 m2 Marcia Fausto [facility], [facility].; [employer] [facility], [employer]. 12-30-2018 08:25-0400 Body weight 66.23 kg Christine Lambert [facility], [facility].; [employer], [employer]. 12-30-2018 08:25-0400 Diastolic blood pressure 79 mm[Hg] Christine Lambert [facility], [facility].; [employer]. Comment on above: Patient Position: Si tting; Cuff Location: Left Arm; Cuff Size: Large 12-30-2018 08:25-0400 Heart rate 98 /min Christine Lambert [facility], [facility].; [employer], [employer]. Comment on above: Pattern: Regular 12-30-2018 08:25-0400 Systolic blood pressure 126 mm[Hg] Christine Lambert [facility] [employer]. Comment on above: Patient Position: Si tting; Cuff Location: Left Arm; Cuff Size: Large Encounters Encounter Date Encounter Type Care Provider Facility Start: 02-07-2025 ambulatory Delaney Orta ty:[facility] Start: 01-21-2025 End: 01-21-2025 ambulatory [facility] Start: 11-12-2024 End: 11-12-2024 Patient encounter procedure Sheila Alonso PA-C Work Phone: [facility] Start: 09-21-2024 End: 09-21-2024 Office outpatient visit 15 minutes Sheila Alonso PA-C Work Phone: [employer] Start: 09-03-2022 End: 09-03-2022 Office outpatient visit 15 minutes Sheila Alonso PA-C Work Phone: [employer] Start: 03-08-2019 End: 03-08-2019 Orders Sheila Alonso PA-C Work Phone: [employer] Start: 03-08-2019 End: 03-08-2019 Historical Summary Sheila Alonso PA-C Work Phone: [employer] Start: 03-01-2019 End: 03-01-2019 Patient encounter procedure [facility] Start: 02-08-2019 End: 02-08-2019 Orders Sheila Alonso PA-C Work Phone: [employer] Start: 12-30-2018 End: 12-30-2018 Office outpatient visit 15 minutes Sheila Alonso PA-C Work Phone: [employer] Start: 07-30-2018 End: 07-31-2018 Patient encounter procedure ELSI DELCID Facility:A Start: 06-11-2018 End: 06-13-2018 Evaluation and management of inpatient JESSY ELLIOTT Facility:B Procedures Date Procedure Procedure Detail Performing Clinician Start: 02-08-2019 End: 03-08-2019 soft tissue head & neck real time imge docm Elsi Jo [employer] Hernia Christine Ross [employer] Comment on above: 2015 Immunizations Immunization Date Immunization Notes Care Provider Jazmyn amaro 06-25-1990 measles, mumps and rubella virus vaccine Sheila Alonso PA-C Work Phone: [employer]; [employer]. 06-25-1990 diphtheria, tetanus toxoids and acellular pertussis vaccine Sheila Alonso PA-C Work Phone: [employer].; [facility]. 06-25-1990 poliovirus vaccine, inactivated Sheila Alonso PA-C Work Phone: [employer] [facility]; [facility] 05-01-1989 diphtheria, tetanus toxoids and acellular pertussis vaccine Sheila Alonso PA-C Work Phone: [facility]; [facility] 05-01-1989 poliovirus vaccine, inactivated Sheila Alonso PA-C Work Phone: [facility]; [facility] Payers Date Payer Category Payer Unknown [id number] 2025 Unknown [id number] 2024 Unknown [id number] 2018 Self-pay 1990 Unknown [id number] 1988 Unknown [id number] 1988 Unknown [id number] Unknown Unknown [id number] [id number] Unknown [id number] [id number] [id number] Social History Date Type Detail Facility Female [facility]; [facility] Work Phone: Tobacco smoking consumption unknown [facility]; [facility] Work Phone: Alcohol Use: Alcohol Use: ; None. [facility]; [facility] Caffeine Use Caffeine Use [facility]; [employer] [facility] Tobacco Use: Tobacco Use: ; N ever smoker. [facility]; [facility] Never smoked tobacco [facility]; [employer] [facility] Work Phone: NEGATED: Highlighted row No Social History Information Available No Social History Information Available [facility]; [employer] Work Phone: Summary Purpose Family History No [...] section and content) DATE CREATED AUTHOR 08/18/2018 [facility] DATE CREATED AUTHOR AUTHOR'S ORGANIZ ATION 03/04/2019 [facility] DATE CREATED AUTHOR AUTHOR'S ORGANIZ ATION 05/20/2019 [facility] DATE CREATED AUTHOR AUTHOR'S ORGANIZ ATION 09/10/2019 [facility] DATE CREATED AUTHOR AUTHOR'S ORGANIZ ATION 02/09/2025 [facility] FOR RECORDS PERTAINING TO PATIENTS WHO [...] BE BASED ON THE PRIMARY CLINICAL RECORDS. [employer] provides no warranty or guarantee of the accuracy or completeness of information in this document.
[2025-03-01 10:57] LABS: Internal QC Validated? YES +Cl - CLEAR BKGD; Pregnancy, Serum, hCG Quali. NEGATIVE Negative; Record Kit Lot#, Serum Preg. 980607
--- NOTE | 2025-03-01 11:09 | PRE.ANES_ITS ---
ASA Classification* ASA Classification ASA Classification: 2 Assessment & Plan Anesthesia* Anesthesia Assessment Anesthesia Assessment: Discussed sedation and/or anesthesia options, risks, benefits, and alternatives with patient/parents/legal guardian/POA. Questions invited. The patient/parents/legal guardian/POA seems to understand and agrees to proceed with anesthesia plan. Reviewed the physical assessment, medical history, allergy history and patient home medications list prior to surgery/procedure/anesthetic and documented any changes. Performed airway and anesthesia risk assessments. Anesthesia Type Anesthesia Type: MAC History Source History Obtained from:: Patient and Chart Anesthesia Focused Assessment* Temperature: 97.6 F Pulse Rate: 105 Blood Pressure: 115/76 Respiratory Rate: 16 Pulse Ox: 100 Oxygen Delivery Method: Room Air Airway Assessment Mouth opens: >3 cm Mallampati Score: I Teeth Condition: Intact Neck Range of motion (ROM): Full ROM Labs Anesthesia Preop lab: CBC WBC, (4.4-11.0) 7.9 K/mm3 09/01/15, 05:55 RBC, (4.2-5.4) 2.94 M/mm3 L 09/01/15, 05:55 Hgb, (12.0-15.0) 9.5 g/dl L 09/01/15, 05:55 Hct, (37-47) 28.2 % L 09/01/15, 05:55 Plt Count, (150-450) 161 K/mm3 09/01/15, 05:55 CHEMISTRY COAG Pre-Assessment Diagnosis/Proposed Procedure Planned Operative Procedure(s): EXCISION OF LIPOMA ON BACK Anesthesia History Anesthesia History - 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 When Was Last Pacemaker Check QUESTION #4 FULL TEXT: You/Your Family Experience fever (hyperthermia) with Anesthesia Last Oral Intake Last Oral intake: Last Oral Intake NPO since 05:45 03/01/25 10:21 Meds taken in AM with sips of No 03/01/25 10:21 water? Meds patient instructed to take am of surgery Any additional information?: Yes NPO since: 05:45 (Patient had water at 5:45 AM.) PONV PONV - sour bleaching pleater: PONV - sour bleaching pleater Female Yes 02/22/25 09:08 HX of Motion Sickness No 02/22/25 09:08 HX of N/V After Surgery Yes 02/22/25 09:08 Non-Smoker Yes 02/22/25 09:08 Duration of Surgery greater Yes 02/22/25 09:08 than 60 minutes Number of Risk Factors 4 02/22/25 09:08 PONV Score Severe Risk 02/22/25 09:08 Height & Weight Height & Weight: Anesthesia: Height & Weight Height 5 ft 1 in 03/01/25 10:21 Weight: 71 kg 03/01/25 10:21 Body Mass Index (BMI) 29.5 03/01/25 10:21 Respiratory Assessment Respiratory Assessment - sour bleaching pleater: Respiratory Tract Infection Hx - sour bleaching pleater Hx Respiratory Tract Infection No 02/22/25 09:08 STOP Sleep Apnea STOP Sleep Apnea - sour bleaching pleater: STOP Sleep Apnea - sour bleaching pleater Hx Hypertension No 02/22/25 09:08 Hx Sleep Apnea No 02/22/25 09:08 CPAP BIPAP Do you snore loudly (louder No 02/22/25 09:08 than talking or can be heard Do you often feel tired/ No 02/22/25 09:08 fatigued/ sleepy during daytime? Has anyone observed you stop No 02/22/25 09:08 breathing during sleep? STOP Results Negative 02/22/25 09:08 QUESTION #5 FULL TEXT : Do you snore loudly (louder than talking or can be heard through closed doors)? 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 Specify any problems Hx of Preganancy in last 3 No 02/22/25 09:08 Months Nurse Filling Out Transfusion [email or web address] 02/22/25 09:08 & Questions: Date: 02/22/25 02/22/25 09:08 Time: 09:12 02/22/25 09:08 Patient unable to answer at this time (ie. confused, unrespo /Reproduction History /Reproductive History - sour bleaching pleater: /Reproductive Hx- sour bleaching pleater Hx Now Gestational Age (in weeks): EDC: Hx Hx Para Hx Section SAB No 02/22/25 09:08 Does the father of the baby or his family experience fever w Father of the baby Malignant Hypertension history comment Active Medications Active Medications: Current Medications Generic Name Dose Route Start Last Admin Trade Name Freq PRN Reason Stop Dose Admin Lactated Ringer's 1,000 mls @ 15 mls/hr 03/01/25 10:15 03/01/25 10:47 IV 15 mls/hr .Q48H AIDA Administration PFSH Medical History (Updated 02/22/25 @ 09:17 by [place]) MTHFR gene mutation Non-smoker Lipoma of back Thyroid nodule Thyroid mass Home Medications ?Medication ?Instructions ?Recorded ?Last Taken ?Type ascorbic acid (vitamin C) 1 g PO DAILY 03/18/19 Unknow n History cholecalciferol (vitamin D3) 50 2,000 unit PO DAILY Unknown History mcg/drop (2,000 unit/drop) oral drops (Viz-P-Loqvmjm Forte) cyanocobalamin (B12)-cobamamide 1 tab sublingual DAILY 03/18/19 Unknown History 5,000 mcg-100 mcg sublingual tablet licorice root (G.glabra) 450 mg 450 mg PO DAILY Unknown History capsule HERBAL TINCTURE 1 dose PO DAILY 02/22/25 Unk nown History MAGNESIUM OIL 1 dose PO QHS 02/22/25 Unkno wn History ferrous sulfate 325 mg (65 mg 325 mg PO DAILY PRN SUPP LEMENT 02/22/25 Unknown History iron) tablet (Feosol) multivitamin (Daily Value tablet) 1 tab PO DAILY 02/22 Unknown History Allergy/AdvReac Type Severity Reaction Status Date / Time Iodinated Contrast Media Allergy Intermediate tongue Verified 02/22/25 09:03 swelling Family History Father No problems noted. Surgical History Status post biopsy of thyroid gland (~03/2019) History of umbilical hernia repair delivery, delivered, current hospitalization Social History Smoking Status: Never smoker Review of Systems (Anesthesia) ROS Narrative System reviewed and no additional complaints, except as documented.
[2025-03-01] MEDS: Midazolam 2 MG/2 ML Syringe IV (11:18)
[2025-03-01] MEDS: Lactated Ringers 1,000 ML 1000 ML IV (11:18)
[2025-03-01] MEDS: Cefazolin 1 GM/5 ML Vial 2 GM IV (11:25)
[2025-03-01] MEDS: Lidocaine 1% (5 ml sdv) 5 ML Vial IV (11:29)
--- NOTE | 2025-03-01 11:30 | LIP_PTH ---
PATIENT: ANITA MCKEON LOC: [facility] [place] U#:[id number] AGE/SX: 34/F ROOM: RE03/01/[address]: Dr. José Manuel Villalobos MD : 1990 BED: DIS: 03/01/2025 SPEC #: [id number] RECD: 03/01/25 12:18 STATUS: JOAN REScot #: [id number] BRE: 03/01/25 11:[address]: José Manuel Villalobos DEPT: SURGICAL PATHOLOGY RECD BY: Helen Bernard ENTERED: 03/01/25 14:18 SP TYPE: LIPOMA OTHR DR: Dr. Cliff Kelly MD Tissues: Soft tissues, NOS Procedures: Surgery Specimen Level III HEADER OPERATION: Excision of lipoma 6cm x 4.9cm on back PRE-OP DIAGNOSIS: Lipoma on back TISSUE SUBMITTED: A- Back mass MICROSCOPIC DIAGNOSIS A. Soft tissue, back, mass, excision: - Mature adipose consistent with lipoma. MICROSCOPIC DESCRIPTION Slides are reviewed. GROSS DESCRIPTION A. Received in formalin labeled with the patient's name and date of . Designated as back mass is a 7.1 x 5.0 x 1.5 cm yellow lobulated and focally disrupted soft tissue mass devoid of orientation. Sectioning reveals yellow granular focally congested, homogenous cut surfaces. Human Resources Operations Manager sections are submitted in 2 cassettes. [place] [id number]:[id number]
[2025-03-01] MEDS: fentaNYL 100 MCG/2 ML Ampul IV (11:32)
--- NOTE | 2025-03-01 11:35 | OP.PCM_ITS ---
Operative Report (Standard) Operative Information Date of Procedure: 03/01/25 Pre-Operative Diagnosis: Back Mass Post-Operative Diagnosis: Same Surgery/Procedure Performed: Excision of subfascial (beneath latissimus fascia) back mass, 7 x 4 cm assembler latches and springs: Yes [employer] Consultant: Salinas Mcintosh Tasks completed by rn first assistant: Opening & closing and Retracting Type of Anesthesia: Local MAC (30 cc of a 50-50 mixture of 1% lidocaine with 1- 200,000 epinephrine and quarter percent Marcaine with 1-200,000 epinephrine) RN Documented Start/Stop Times: Operation Date: 03/01/25 11:30 Case Time Into Pre-Op 03/01/25 10:08 Anesthesia Start 03/01/25 11:18 Into Room 03/01/25 11:18 Procedure Start 03/01/25 11:41 Procedure End 03/01/25 12:01 Anesthesia End 03/01/25 12:06 Out of Room 03/01/25 12:06 Into Recovery 03/01/25 12:08 Procedure Start Time: 11:41 Procedure Stop Time: 12:01 Select all DRAINS/GRAFTS/IMPLANTS that apply: None Estimated Blood Loss: 10 cc Specimen collected: Yes Description of specimen(s) removed: Back mass Description of surgery: Indications: Patient is a delightful 34-year-old female with a back mass over the thoracic paraspinous region. Was marked in preoperative holding. Ultrasound demonstrated a lipoma likely. She understands the risks, benefits, and alternatives to removal. I spoke to her extensively about blood clot risk in the setting of the MTFR gene mutation. We are going to do the procedure under MAC/local to mitigate these risks and therefore defer any general anesthesia/paralytic that would potentially provoke a venous thromboembolism. Patient in agreement with the plan. We will therefore defer the postoperative anticoagulation (but she will still need to be walking immediately after the surgery). Patient in agreement with the plan. Procedure details: Patient was correctly identified in preoperative holding and marked. She was taken back to the operating room where she was administered sedation with SCDs on and activated. She was prepped and draped in sterile fashion and 30 cc of the above-noted local solution was injected around the mass. A proper timeout was performed. 10 blade scalpel was used to make a direct incision over the mass and dissection with Bovie electrocautery was taken down to the mass which was consistent with lipoma. It was dissected circumferentially with blunt dissection, right angle, and Bovie electrocautery for hemostasis. It was beneath the latissimus fascia. It was sent in 1 piece and measured 7 x 4 cm. The wound was irrigated with copious amounts normal saline and closed in layers using 0 PDS deep fascial progressive tension sutures and 0 PDS deep fascial sutures for Jacquelin's fascia and 3-0 Monocryl deep dermal and 3-0 Monocryl running subcuticular suture and Prineo tape. Patient tolerated the procedure well. She was awakened taken to the PACU in stable condition. Postoperative plan: Follow-up in 1 week for wound check and to review pathology. No heavy lifting for 1 month. Surgical Findings: Consistent with lipoma Complications Complications: No
[2025-03-01] MEDS: Bupiv/Epi 0.25% 30 ML Vial (11:47)
[2025-03-01] MEDS: Lidocaine 1% /Epi 1:100 (20ml) 20 ML Vial (11:47)
--- NOTE | 2025-03-01 12:12 | PCM.POST.ANE ---
Anesthesia: Postop Eval I Current Vital Signs Temperature: 99.0 F Pulse Rate: 89 Blood Pressure: 110/83 Respiratory Rate: 20 Pulse Ox: 100 Oxygen Delivery Method: Room Air Assessment Airway patent: Yes Spontaneous unlabored respirations: Yes Mental status: Awake and Calm nausea: No Vomiting: No Anesthesia Complication: No Fluid Hydration Crystalloid volume administer (ml): 400 Total IV fluid infused: 400 Progress Note Anesthesia document: Postop Eval 1 completed: Yes
--- NOTE | 2025-03-01 20:45 | POSTOPAN2_ITS ---
Anesthesia Postop Eval I Sum Postop Eval Completion status Anesthesia document: Postop Eval 1 completed: Yes Anesthesia Postop Eval I Summary Anesthesia Postop Eval I Summary: Anesthesia Postop Eval I: Assessment Summary Airway patent Yes 03/01/25 12:13 [email or web address] Spontaneous unlabored Yes 03/01/25 12:13 [email or web address] [email or web address] respirations Mental status Awake,Calm 03/01/25 12:13 [email or web address] [email or web address] nausea No 03/01/25 12:13 [email or web address] [email or web address] Vomiting No 03/01/25 12:13 [email or web address] Anesthesia Postop Eval I: Fluid Summary Crystalloid volume administer 400 03/01/25 12:13 [email or web address] (ml) Colloids volume administered ( ml) Blood Product volume administered (ml) Total IV fluid infused 400 03/01/25 12:13 [email or web address] Anesthesia Postop Eval I: Summary Notes Anesthesia Complication No 03/01/25 12:13 [email or web address] Anesthesia Complication Comment: Post-operative progress note Anesthesia: Postop Eval II Evaluation Mental status: Awake and Calm Pain Level: 1 nausea: No Vomiting: No Complications Anesthesia Complication: No
--- NOTE | 2025-03-01 20:45 | PCM.POSTANE2 ---
Anesthesia Postop Eval I Sum Postop Eval Completion status Anesthesia document: Postop Eval 1 completed: Yes Anesthesia Postop Eval I Summary Anesthesia Postop Eval I Summary: Anesthesia Postop Eval I: Assessment Summary Airway patent Yes 03/01/25 12:13 [email or web address] Spontaneous unlabored Yes 03/01/25 12:13 [email or web address] respirations Mental status Awake,Calm 03/01/25 12:13 [email or web address] nausea No 03/01/25 12:13 [email or web address] Vomiting No 03/01/25 12:13 [email or web address] Anesthesia Postop Eval I: Fluid Summary Crystalloid volume administer 400 03/01/25 12:13 [email or web address] (ml) Colloids volume administered ( ml) Blood Product volume administered (ml) Total IV fluid infused 400 03/01/25 12:13 [email or web address] Anesthesia Postop Eval I: Summary Notes Anesthesia Complication No 03/01/25 12:13 [email or web address] Anesthesia Complication Comment: Post-operative progress note Anesthesia: Postop Eval II Evaluation Mental status: Awake and Calm Pain Level: 1 nausea: No Vomiting: No Complications Anesthesia Complication: No
== END 2025-03-01 13:56 | disposition home or self-care (01) ==
LOC: SDC 10:02 → AC 10:03
PROVIDERS: Anesthesiology; PCP Family Medicine; Referring Provider Surgery Plastic and Reconstructive Surgery; Visit Provider Surgery Plastic and Reconstructive Surgery
PROC: (CPT 21931; principal; 2025-03-01 11:15)
DX: D17.1 Benign lipomatous neoplasm of skin and subcutaneous tissue of trunk (principal)
CPT/HCPCS: 21931; 00300; 84703; 88304; J2405